=== PATIENT | female | born 1980 | race Caucasian/White ===

== ENCOUNTER 2018-10-02 15:24 | Inpatient (IN) ==
--- NOTE | 2018-10-02 18:40 | History & Physical Report ---
*Admission Date: 10/02/18 *Chief complaint: chest pain *History of present illness: Ms. Messina is a pleasant 38-year-old female, G1, P1, 3 weeks (C- section delivery) who presented to clinic today due to acute onset of right- sided posterior thoracic pain last night at approximately 10 PM. It is worst when taking a deep breath. Pain is constant and burning with sharp episodes on a deep breath. Denies cardial chest pain, syncope, swelling in her legs, nausea, vomiting, diarrhea. No fevers. Does report additionally the pain is worse when laying back. In the clinic she appeared uncomfortable with a gasp of pain each time she took a deep breath. Was sent to radiology for CT PE with discovery of bilateral pulmonary emboli. Admitted to [facility] for heparin drip to initiate anticoagulation, echocardiogram to assess for heart strain given bilateral PEs and flattened intraventricular septum on CT. Further management pending results of lab work and imaging. [facility] History I have reviewed the patient's past medical history: Yes Medical History: Denies:: Depression, Diabetes Mellitus Type 1, Lung Disease *Have you ever received a pneumonia vaccine?: No *Have you received a flu vaccine this season?: No Other Surgeries: Yes: Appendectomy Amputation: No Fractures: No - *Social History Educational Level: Attended College Smoking Status: Former smoker Tobacco Type: cigarettes # Packs/Day (cigarettes): 1 Alcohol Intake: never *Occupational Status:: employed Housing: house Household Members: spouse, children *Travel in the last 8 weeks: None - Psychiatric History Expresses thoughts of harming self/others: None Suicide Plan Description: No Plan Family Hx:: Cancer Review of Systems - Review of Systems Review of systems:: pertinent systems reviewed and negative unless documented below Meds Allergies Allergy/AdvReac Type Severity Reaction Status Date / Time INGREDIENT: NO KNOWN - NO Allergy Unknown Uncoded 02/04/17 14:48 KNOWN DRUG ALLERGY Exam Vital signs and Labs for Last 24 Hours: Temp Pulse Resp BP Pulse Ox 99.0 F 105 H 22 111/65 95 10/02/18 17:24 10/02/18 17:24 10/02/18 17:24 10/02/18 17:24 10/02/18 17:24 I & O for Last 24 hours: Intake & Output 09/29/18 09/30/18 10/01/18 10/02/18 23:59 23:59 23:59 23:59 Weight 124.936 kg - Constitutional mild distress, obese - *Routine HEENT Exam Head: Present: normocephalic Eye: Present: EOMI, PERRL ENT: Present: mucous membranes moist - *Routine Neck Exam Present: supple. Absent: lymphadenopathy - *Routine Respiratory Exam Present: CTA bilaterally. Absent: wheezes, crackles Comments: Pain with deep inspiration, no friction rubs. - *Routine Cardiovascular Exam Present: RRR - *Routine Abdominal Exam Present: soft, normoactive bowel sounds. Absent: tenderness - *Routine Extremities Exam Absent: cyanosis, clubbing, edema - *Routine Skin Exam Present: warm. Absent: rash - *Routine Neurological Exam Present: alert, oriented X3 Assessment and Plan (1) Bilateral pulmonary embolism Current visit: Yes Status: Acute Category: Medical Code(s): I26.99 - Other pulmonary embolism without acute cor pulmonale 38-year-old 3-week , status post , breast-feeding mother with bilateral PEs. -Initiate heparin drip, lab work as ordered -Echocardiogram pending -Monitor overnight for hemodynamic stability. If tolerates well with no signs of heart strain, plan to transition to oral therapy at time of discharge. -Requires inpatient management
[2018-10-02 18:53] LABS: Basophils % 0.2 % (0.1-2.0); Eosinophils # 0.1 K/mm3 (0.0-0.4); Eosinophils % 1.2 % (0.1-12.0); Hematocrit 42.9 % (37.0-47.0); Hemoglobin 13.6 g/dL (12.2-16.2); Lymphocytes # 2.2 K/mm3 (0.7-4.5); Mean Corpuscular HGB Conc 31.7 g/dL (31.8-35.4); Mean Corpuscular Volume 90.4 fl (81-99); Mean Platelet Volume 7.3 fl (7.4-10.4); Monocytes # 0.6 K/mm3 (0.1-1.0); Monocytes % 4.9 % (1.7-9.3); Neutrophils # 8.2 K/mm3 (1.8-7.8); Neutrophils % 73.8 % (37.0-80.0); Platelet Count 334 K/mm3 (142-424); Red Blood Count 4.74 M/mm3 (4.20-5.40); Red Cell Distribution Width 13.6 % (11.5-17.5); White Blood Count 11.1 K/mm3 (4.8-10.8)
[2018-10-02 19:05] LABS: Anion Gap 13.1 mEq/L (5-15); Calcium 8.7 mg/dL (8.5-10.1)
[2018-10-02 19:24] LABS: INR 1.05 (0.9-1.1); Prothrombin Time 10.9 seconds (9.4-11.8)
[2018-10-03 06:50] LABS: Basophils % 0.3 % (0.1-2.0); Eosinophils # 0.1 K/mm3 (0.0-0.4); Eosinophils % 1.2 % (0.1-12.0); Hematocrit 38.4 % (37.0-47.0); Hemoglobin 12.4 g/dL (12.2-16.2); Lymphocytes # 2.5 K/mm3 (0.7-4.5); Lymphocytes % 29.8 % (10-50); Mean Corpuscular HGB Conc 32.2 g/dL (31.8-35.4); Mean Corpuscular Volume 89.4 fl (81-99); Mean Platelet Volume 7.1 fl (7.4-10.4); Monocytes # 0.6 K/mm3 (0.1-1.0); Monocytes % 7.5 % (1.7-9.3); Neutrophils # 5.2 K/mm3 (1.8-7.8); Neutrophils % 61.1 % (37.0-80.0); Platelet Count 322 K/mm3 (142-424); Red Blood Count 4.29 M/mm3 (4.20-5.40); Red Cell Distribution Width 13.6 % (11.5-17.5); White Blood Count 8.5 K/mm3 (4.8-10.8)
[2018-10-03 06:52] LABS: Anion Gap 11.8 mEq/L (5-15); Calcium 9.1 mg/dL (8.5-10.1)
--- NOTE | 2018-10-03 08:26 | Progress Note ---
Internal Medicine - PN: Subj *Date: 10/03/18 *Time: 08:25 Interval history: Overall patient feels somewhat better, continues to have some pain with deep breathing. However he has had no further shortness of air at rest, and she does have shortness of air when she gets up and goes to the restroom. Exam Vital signs and Labs for Last 24 Hours: Temp Pulse Resp BP Pulse Ox 98.4 F 80 17 129/63 97 10/03/18 07:49 10/03/18 07:49 10/03/18 07:49 10/03/18 07:49 10/03/18 07:49 Laboratory Results - last 24 hr 10/02/18 18:39: WBC 11.1 H, RBC 4.74, Hgb 13.6, Hct 42.9, MCV 90.4, MCH 28.7, MCHC 31.7 L, RDW 13.6, Plt Count 334, MPV 7.3 L, Neut % (Auto) 73.8, Lymph % (Auto) 20.0, [place] % (Auto) 4.9, Eos % (Auto) 1.2, Baso % (Auto) 0.2, Neut # (Aut o) 8.2 H, Lymph # (Auto) 2.2, [place] # (Auto) 0.6, Eos # (Auto) 0.1, Baso # (Auto) 0.0 10/02/18 18:39: PT 10.9, INR 1.05 10/02/18 18:39: Sodium 139, Potassium 4.1, Chloride 101, Carbon Dioxide 29, Anion Gap 13.1, BUN 13, Creatinine 0.72, Estimated Creat Clear 106, Estimated GFR 90, Est GFR ( Amer) 109, Glucose 90, Calcium 8.7 10/02/18 18:39: Troponin I < 0.02 10/02/18 18:39: APTT 29.0 10/03/18 00:20: APTT 38.1 H D 10/03/18 06:25: WBC 8.5, RBC 4.29, Hgb 12.4, Hct 38.4, MCV 89.4, MCH 28.8, MCHC 32.2, RDW 13.6, Plt Count 322, MPV 7.1 L, Neut % (Auto) 61.1, Lymph % (Auto) 29.8, [place] % (Auto) 7.5, Eos % (Auto) 1.2, Baso % (Auto) 0.3, Neut # (Auto) 5.2, Lymph # (Auto) 2.5, [place] # (Auto) 0.6, Eos # (Auto) 0.1, Baso # (Auto) 0.0 10/03/18 06:25: Sodium 140, Potassium 3.8, Chloride 104, Carbon Dioxide 28, A nion Gap 11.8, BUN 19 H D, Creatinine 0.70, Estimated Creat Clear 109, Estimated GFR 93, Est GFR ( Amer) 113, Glucose 103, Calcium 9.1 10/03/18 06:25: APTT 50.4 H* D I & O for Last 24 hours: Intake & Output 09/30/18 10/01/18 10/02/18 10/03/18 11:59 11:59 11:59 11:59 Intake Total 311 / 311 Balance 311 / 311 Weight 281 lb 7 oz Narrative: Able to take a deep breath without splinting as much as yesterday, continues to have some pain on inspiration. Heart rate regular. Abdomen soft nontender. Lung hanson are clear. Oropharynx clear, no JVD. Patient is alert, neurologically intact Assessment and Plan (1) Bilateral pulmonary embolism Current visit: Yes Status: Acute Category: Medical Code(s): I26.99 - Other pulmonary embolism without acute cor pulmonale - Assessment and plan all Dx Assessment and Plan for all problems:: Clinically improved with heparin administration. Continue close follow-up. Labs in the morning. Start Xarelto this morning at 15 mg twice daily. If clinically improved would consider discharge tomorrow.
--- NOTE | 2018-10-03 13:16 | Pharmacy Consult Notes ---
[facility] Pharmacy Heparin Dosing - Demographic Data Admission date:: 10/02/18 Date: 10/03/18 Time: 13:12 Allergies/Adverse Reactions: Allergies Allergy/AdvReac Type Severity Reaction Status Date / Time No Known Allergies Allergy Unverified 10/03/18 09:27 Height: 1.73 m Weight: 127.7 kg - Indication Medication therapy:: Heparin CVA?: No Bleeding problem?: No Kidney disease?: No ID?: No Desired PTT range:: 60-80 seconds Comments:: CURRENTLY - Labs Anticoagulation Lab Results:: 10/02/18 10/03/18 18:39 06:25 Hgb 13.6 12.4 Hct 42.9 38.4 Plt Count 334 322 - Monitoring Dose Monitor 1 Date: 10/02/18 Time: 18:30 PTT Result:: 29.0 Comment:: BOLUS OF 5,000 UNITS AND INFUSION INITIATED AT 1,400 UNITS/HR Dose Monitor 2 Date: 10/03/18 Time: 00:20 PTT Result:: 38.1 Infusion Rate:: INCREASE RATE TO 1,650 UNITS/HR. ANOTHER BOLUS OF 5,000 UNITS GIVEN. Dose Monitor 3 Date: 10/03/18 Time: 06:25 PTT Result:: 50.4 Infusion Rate:: RATE INCREASED TO 1,750 UNITS/HR Comment:: PATIENT STARTED ON XARELTO TO BE TAKEN WHILE ON HEPARIN DRIP. VERBALLY VERIFIED THIS WITH DR. DUNHAM. Dose Monitor 4 Date: 10/03/18 Time: 13:55 PTT Result:: 68.9 Infusion Rate:: 1,750 UNITS/HR Dose Monitor 5 Date: 10/03/18 Time: 19:55 PTT Result:: 54.8 Infusion Rate:: INCREASE RATE TO 1,800 UNITS/HR Dose Monitor 6 Date: 10/04/18 Time: 02:35 PTT Result:: 51.3 Infusion Rate:: INCREASE RATE TO 1,900 UNITS/HR Comment:: HEPARIN DRIP DISCONTINUED AND PATIENT WAS DISCHARGED ON XARELTO 15MG BID WITH MEALS. - Core Measures Is INR > or = 2 at discharge?: No Most Recent Labs:: Laboratory Results - last 24 hr 10/02/18 18:39: WBC 11.1 H, RBC 4.74, Hgb 13.6, Hct 42.9, MCV 90.4, MCH 28.7, MCHC 31.7 L, RDW 13.6, Plt Count 334, MPV 7.3 L, Neut % (Auto) 73.8, Lymph % (Auto) 20.0, [place] % (Auto) 4.9, Eos % (Auto) 1.2, Baso % (Auto) 0.2, Neut # (Auto) 8.2 H, Lymph # (Auto) 2.2, [place] # (Auto) 0.6, Eos # (Auto) 0.1, Baso # (Auto) 0.0 10/02/18 18:39: PT 10.9, INR 1.05 10/02/18 18:39: Sodium 139, Potassium 4.1, Chloride 101, Carbon Dioxide 29, Ani on Gap 13.1, BUN 13, Creatinine 0.72, Estimated Creat Clear 106, Estimated GFR 90, Est GFR ( Amer) 109, Glucose 90, Calcium 8.7 10/02/18 18:39: Troponin I < 0.02 10/02/18 18:39: APTT 29.0 10/03/18 00:20: APTT 38.1 H D 10/03/18 06:25: WBC 8.5, RBC 4.29, Hgb 12.4, Hct 38.4, MCV 89.4, MCH 28.8, MCHC 32.2, RDW 13.6, Plt Count 322, MPV 7.1 L, Neut % (Auto) 61.1, Lymph % (Auto) 29.8, [place] % (Auto) 7.5, Eos % (Auto) 1.2, Baso % (Auto) 0.3, Neut # (Auto) 5.2, Lymph # (Auto) 2.5, [place] # (Auto) 0.6, Eos # (Auto) 0.1, Baso # (Auto) 0.0 10/03/18 06:25: Sodium 140, Potassium 3.8, Chloride 104, Carbon Dioxide 28, Anion Gap 11.8, BUN 19 H D, Creatinine 0.70, Estimated Creat Clear 109, Estimated GFR 93, Est GFR ( Amer) 113, Glucose 103, Calcium 9.1 10/03/18 06:25: APTT 50.4 H* D If INR was < than 2.0 why was therapy stopped?: PATIENT WENT HOME ON XARELTO Were Heparin and Warfarin started on the same day?: No If not, why?: SWITCHED TO XARELTO
--- NOTE | 2018-10-03 13:19 | Pharmacy Consult Notes ---
[facility] Pharmacy VTE Monitoring - Patient Demographics Admission date: 10/02/18 Report Date: 10/03/18 Time: 13:19 Allergies/Adverse Reactions: Patient Allergies No Known Allergies Allergy (Unverified 10/03/18 09:27) Height: 1.73 m Weight: 127.7 kg Patient Problems: Current Active Problems Bilateral pulmonary embolism (Acute) - VTE Risk Labs: VTE Related Lab Results Hgb 12.4 g/dL (12.2-16.2) 10/03/18 06:25 Hct 38.4 % (37.0-47.0) 10/03/18 06:25 Plt Count 322 K/mm3 (142-424) 10/03/18 06:25 PT 10.9 seconds (9.4-11.8) 10/02/18 18:39 INR 1.05 (0.9-1.1) 10/02/18 18:39 APTT 50.4 seconds (23.6-34.0) H* D 10/03/18 06:25 BUN 19 mg/dL (7-18) H D 10/03/18 06:25 Creatinine 0.70 mg/dL (0.55-1.02) 10/03/18 06:25 Estimated Creat Clear 109 mL/min (50-200) 10/03/18 06:25 VTE Score: 4 VTE Risk Level: Low Risk - Prophylaxis VTE Prophylaxis Ordered?: Yes Types of VTE Prophylaxis: Pharmacological Pharmacologic Type: Other (XARELTO) - VTE Diagnosis Confirmed Treatment or plan recommended: Continue Current Treatment
[2018-10-04 02:44] LABS: Basophils % 0.3 % (0.1-2.0); Eosinophils # 0.2 K/mm3 (0.0-0.4); Eosinophils % 2.7 % (0.1-12.0); Hematocrit 38.2 % (37.0-47.0); Hemoglobin 12.1 g/dL (12.2-16.2); Lymphocytes # 3.4 K/mm3 (0.7-4.5); Lymphocytes % 40.6 % (10-50); Mean Corpuscular HGB Conc 31.7 g/dL (31.8-35.4); Mean Corpuscular Volume 90.6 fl (81-99); Mean Platelet Volume 7.5 fl (7.4-10.4); Monocytes # 0.5 K/mm3 (0.1-1.0); Monocytes % 5.4 % (1.7-9.3); Neutrophils # 4.2 K/mm3 (1.8-7.8); Neutrophils % 51.1 % (37.0-80.0); Platelet Count 319 K/mm3 (142-424); Red Blood Count 4.22 M/mm3 (4.20-5.40); Red Cell Distribution Width 13.5 % (11.5-17.5); White Blood Count 8.3 K/mm3 (4.8-10.8)
[2018-10-04 02:50] LABS: Anion Gap 11.1 mEq/L (5-15); Calcium 8.7 mg/dL (8.5-10.1)
--- NOTE | 2018-10-04 08:11 | Discharge Summary ---
General - General Admission date:: 10/02/18 Discharge date: 10/04/18 HPI HPI: Ms. Messina is a pleasant 38-year-old female, G1, P1, 3 weeks (C- section delivery) who presented to clinic today due to acute onset of right- sided posterior thoracic pain last night at approximately 10 PM. It is worst when taking a deep breath. Pain is constant and burning with sharp episodes on a deep breath. Denies cardial chest pain, syncope, swelling in her legs, nausea, vomiting, diarrhea. No fevers. Does report additionally the pain is worse when laying back. In the clinic she appeared uncomfortable with a gasp of pain each time she took a deep breath. Was sent to radiology for CT PE with discovery of bilateral pulmonary emboli. Admitted to [facility] for heparin drip to initiate anticoagulation, echocardiogram to assess for heart strain given bilateral PEs and flattened intraventricular septum on CT. Further management pending results of lab work and imaging. Hospital Course Hospital Course: Patient was admitted, diagnosis of PE was established by CT scanning. Echocardiogram was done, preliminary report and personal evaluation by me revealed good RV function and wall motion. Patient was placed on heparinization and did well with this and felt much better the next morning but continued to have some splinting pain and dyspnea. Xarelto was started and patient tolerated this well. She did report minimal spotting vaginally but this is no different than she has had over the past couple of weeks since her recent . She continued to improve. This morning she was much better, able to take a much deeper breath without splinting pain unable to do self-care activities without shortness of air and no increase in bleeding. CBC and electrolytes were unremarkable this morning. Plan will be to discharge patient home, Xarelto will be prescribed. Close follow-up in our office as scheduled. 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 Instructed to return to the emergency department if shortness of air worsens. Incentive spirometry was provided. She was instructed that she will be unable to breast-feed given the Xarelto toxicity issues. Objective Vital signs: Temp Pulse Resp BP Pulse Ox 98.4 F 95 H 16 137/72 94 L 10/04/18 07:58 10/04/18 07:58 10/04/18 07:58 10/04/18 07:58 10/04/18 07:58 Narrative: Alert, oriented. Pleasant. No distress. Lungs have good air movement. Splinting pain with deep inspiration but this is improved over her admission exam. Abdomen tender postoperatively but soft. Heart rate regular. Oropharynx clear, no JVD. No skin rash, good distal perfusion. Neurologically intact. Results Labs on day of discharge: Labs from last 24 hours 10/04/18 10/04/18 10/04/18 02:35 02:35 02:35 WBC 8.3 RBC 4.22 Hgb 12.1 L Hct 38.2 MCV 90.6 MCH 28.7 MCHC 31.7 L RDW 13.5 Plt Count 319 MPV 7.5 Neut % (Auto) 51.1 Lymph % (Auto) 40.6 [place] % (Auto) 5.4 Eos % (Auto) 2.7 Baso % (Auto) 0.3 Neut # (Auto) 4.2 Lymph # (Auto) 3.4 [place] # (Auto) 0.5 Eos # (Auto) 0.2 Baso # (Auto) 0.0 APTT 51.3 H* Sodium 141 Potassium 4.1 Chloride 104 Carbon Dioxide 30 Anion Gap 11.1 BUN 15 Creatinine 0.74 Estimated Creat Clear 103 Estimated GFR 87 Est GFR ( Amer) 106 Glucose 100 Calcium 8.7 10/03/18 10/03/18 19:55 14:05 WBC RBC Hgb Hct MCV MCH MCHC RDW Plt Count MPV Neut % (Auto) Lymph % (Auto) [place] % (Auto) Eos % (Auto) Baso % (Auto) Neut # (Auto) Lymph # (Auto) [place] # (Auto) Eos # (Auto) Baso # (Auto) APTT 54.8 H* D 68.9 H* D Sodium Potassium Chloride Carbon Dioxide Anion Gap BUN Creatinine Estimated Creat Clear Estimated GFR Est GFR ( Amer) Glucose Calcium DS: Diagnosis - Discharge Diagnosis (1) Bilateral pulmonary embolism Status: Acute Discharge Plan - Patient Discharge Instructions ACTIVITY: Ambulate as tolerated DIET: continue same diet Patient Instructions: Heart-Healthy Diet, DI for Pulmonary Embolism - Follow up Plan Follow up with: Mera Zhang APRN [Nurse Practitioner] - 10/08/18 11:00 am Disposition: Home, Self-Assisted Medications: Home Medications Medication Instructions Recorded Confirmed Type Ibuprofen [Ibuprofen 800mg 800 mg PO Q8HP PRN 10/03/18 10/03/18 History Tablet] Rivaroxaban [Xarelto 15mg tablet] 15 mg PO BIDWM 21 Days #42 tab 10/04/18 Rx Prescriptions/Medication Reconciliation: New Rivaroxaban [Xarelto 15mg tablet] 15 mg PO BIDWM 21 Days #42 tab Discontinued Ibuprofen [Ibuprofen 800mg Tablet] 800 mg PO Q8HP PRN PRN Reason: PAIN - Problem Reconciliation Problems Reviewed?: Yes
--- NOTE | 2018-10-06 06:26 | Cardiology Report ---
APPROVED REPORT EXAM: Comprehensive 2D, Doppler, and color-flow Echocardiogram Butter Printer: RT Jessa(R) Ht: 5 ft 8 in Wt: 279lbs BSA: 2.35 BP: 130/90 mmHg Indications: Shortness of Breath Left Ventricle Left atrium is mildly enlarged, left ventricle is normal size, left ventricular wall thickness is upper limit of the normal, visually estimated ejection fraction 55% with no regional wall motion abnormality. Grade 1 diastolic dysfunction seen without tissue Doppler evidence of raise left atrial pressure. Right Ventricle Right atrium and right ventricular normal size and contractility. Aortic Valve Aortic valve is thickened and calcified leaflet continue to display good mobility., There is no aortic stenosis aortic insufficiency. Mitral Valve Mitral valve leaflets are minimally thickened, there is no mitral stenosis, there is mild mitral regurgitation. Tricuspid Valve Tricuspid valve is grossly normal, there is mild tricuspid regurgitation, tricuspid regurgitation jet velocity is inadequate for calculation of the right ventricular systolic pressure. Pulmonic Valve Pulmonic valve is poorly visualized. Great Vessels Aortic root is normal size. Pericardium No significant pericardial effusion noted. Conclusion 1. Mildly in the left atrium, normal left ventricular size, visually estimated ejection fraction 55% with no regional wall motion abnormality, grade 1 diastolic dysfunction seen without tissue Doppler evidence of raise left atrial pressure. 2. Mild mitral and tricuspid regurgitation. 3. No significant pericardial effusion noted. Electronically signed by : Shaun Johnson, 10/06/2018 06:25:58
[2018-10-07 00:25] LABS: Anti-Thrombin III Antigen 99 % (72-124); Protein S Antigen, Total 81 % (60-150)
[2018-10-09 09:46] LABS: Protein C Antigen 76 % (60-150)
== END 2018-10-04 08:40 | disposition home or self-care (01) | DRG 776 ==
LOC: RAD 15:24 → 2ND 17:11
PROVIDERS: ADMIT Internal Medicine Adolescent Medicine; ATTEND Internal Medicine Adolescent Medicine

== ENCOUNTER → 2019-04-27 08:43 | Outpatient (CLI) | payer BC, SELFPAY ==
[2019-04-30 15:44] LABS: Protein S Functional 64 % (63-140); Protein S, Free 70 % (57-157)
[2019-05-14 18:17] LABS: Factor II, DNA Analysis NEGATIVE
== END ==
PROVIDERS: PCP Internal Medicine Adolescent Medicine; Visit Provider Internal Medicine Medical Oncology
DX: I26.99 Other pulmonary embolism without acute cor pulmonale (principal)
CPT/HCPCS: 36415; 81240; 85306

== ENCOUNTER → 2022-08-23 07:46 | Outpatient (CLI) | payer BC, SELFPAY ==
--- NOTE | 2022-08-23 07:49 | MM_ITS ---
PROCEDURE INFORMATION: Exam: MG Bilateral Screening 3D Mammography Exam date and time: 08/23/2022 7:52 AM Age: 42 years old Clinical indication: Screening mammogram TECHNIQUE: Imaging protocol: Bilateral Screening tomosynthesis and 2D mammography including computer-aided detection (CAD) when performed. COMPARISON: No relevant prior studies available. FINDINGS: MAMMOGRAPHY: Breast composition: The breasts are almost entirely fatty. Mass: None. Architectural distortion: No new or suspicious architectural distortion. Calcifications: No new or suspicious calcifications are present Asymmetric density: No new or suspicious asymmetric density is present Skin thickening: None. Axillary adenopathy: None. IMPRESSION: No mammographic evidence of malignancy. Recommend annual screening mammography unless otherwise clinically indicated. ASSESSMENT: BI-RADS category 1: Negative
== END ==
PROVIDERS: PCP Internal Medicine Adolescent Medicine; Visit Provider Nurse Practitioner Family
DX: Z12.31 Encounter for screening mammogram for malignant neoplasm of breast (principal)
CPT/HCPCS: 77063; 77067

== ENCOUNTER → 2022-08-28 11:02 | Outpatient (CLI) | payer BC, SELFPAY ==
[2022-08-28 11:33] LABS: Basophils # 0.1 K/mm3 (0-0.2); Basophils % 0.7 % (0.1-2.0); Eosinophils # 0.2 K/mm3 (0.0-0.4); Eosinophils % 1.6 % (0.1-12.0); Hematocrit 50.5 % (37.0-47.0); Hemoglobin 16.3 g/dL (12.2-16.2); Lymphocytes # 3.3 K/mm3 (0.7-4.5); Lymphocytes % 35.1 % (10-50); Mean Corpuscular HGB Conc 32.4 g/dL (31.8-35.4); Mean Corpuscular Hemoglobin 29.9 pg (27.0-31.2); Mean Corpuscular Volume 92.5 fl (81-99); Mean Platelet Volume 7.5 fl (7.4-10.4); Monocytes # 0.5 K/mm3 (0.1-1.0); Monocytes % 5.6 % (1.7-9.3); Neutrophils # 5.3 K/mm3 (1.8-7.8); Neutrophils % 57.1 % (37.0-80.0); Platelet Count 326 K/mm3 (142-424); Red Blood Count 5.46 M/mm3 (4.20-5.40); Red Cell Distribution Width 13.3 % (11.5-17.5); White Blood Count 9.3 K/mm3 (4.8-10.8)
[2022-08-28 12:01] LABS: Anion Gap 9.8 mEq/L (5-15); Blood Urea Nitrogen 12 mg/dl (7-17); Calcium 9.3 mg/dl (8.4-10.2); Carbon Dioxide 27 mmol/L (22.0-30.0); Chloride 107 mmol/L (98-107); Estimated Glomerular Filt Rate 109 ml/min (>60); GFR (African American) 132 ML/MIN (>60); Glucose 91 mg/dl (74-100); Potassium 4.8 mmoL/L (3.5-5.1); Sodium 139 mmol/L (136-145)
== END ==
PROVIDERS: PCP Internal Medicine Adolescent Medicine; Visit Provider Surgery
DX: Z01.812 Encounter for preprocedural laboratory examination (principal); L02.91 Cutaneous abscess, unspecified
CPT/HCPCS: 36415; 80048; 85025

== ENCOUNTER 2022-09-02 06:06 | Day surgery (SDC) | payer BC, SELFPAY ==
[2022-08-30 09:33] VITALS: BMI 46.3
[2022-09-02 06:27] VITALS: BP 138/84; PULSE 84; RESP 18; TEMP 36.1; O2SAT 97
[2022-09-02 06:27] LABS: Urine Pregnancy, HCG Qual. Negative (Negative)
--- NOTE | 2022-09-02 06:56 | EXP.ANES.CKL ---
[facility] Disclaimer: The information contained in this section may have been updated after the patient was seen, as this information can be updated by other users. 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 Anesthesia Checklist Patient Identification Patient Identification: Arm Band and Family Structural Data Admitted From: Home Planned Operative Procedure/s: U and D Right breast Consent for Planned Operative Procedure(s) Verified: Yes Verified Documents: Surgical Consent and History and Physical NPO Status Verified Time NPO: 00:00 Additional verifications Patient : No Anesthesia Reactions: No (drowsiness) Hx Blood Transfusions: No Blood Transfusion Reaction: No Cephalosporin Allergy: No Previous Colonoscopy: Yes Airway Assessment C-Spine Mobility Assessed: Yes TMJ Mobility Assessed: Yes Dentition: Good Dentition Neurological Assessment Level of Consciousness: Awake, Alert, Appropriate and Follows Commands Hx Seizures: No Numbness or tingling in extremities: No Anesthesia Plan Anesthesia Risk discussed: Yes ASA Class: III Anesthesia Type: MAC Preoperative Comments Pre-Operative Comments: Morbid obesity.
--- NOTE | 2022-09-02 07:46 | EXP.OP.NOTE ---
Date of procedure: 09/02/22 Pre-op Diagnosis:: Right breast abscess/abscessed cyst Post-op Diagnosis:: Same Procedure performed:: Excision of abscessed right breast cyst Surgeon:: Jordi Roach MD COMMUNITY RECREATION PROGRAMMER:: Oj Carney Anesthesia: MAC and local Estimated blood loss (mL): 10 Operative findings:: Firm/indurated cystic tissue with recent drainage Operative note:: After informed consent was obtained the patient was taken to the operating room and placed in the supine position. Monitored anesthesia care ensued and her right breast was prepped and draped in a sterile fashion. After infiltration local anesthetic an elliptical incision was made around the inflamed cystic/abscessed lesion. The deep subcutaneous tissue was dissected and the entire specimen was excised in toto and passed off for pathologic evaluation. Electrocautery was utilized to achieve hemostasis. The wound was packed with dry gauze. She was then transferred to recovery in stable condition. Condition: stable Disposition: PACU Specimens:: Right breast abscess cyst and underlying breast tissue Complications:: No immediate
[2022-09-02 07:49] VITALS: BP 105/63; PULSE 83; RESP 16; TEMP 36.1; O2SAT 93
--- NOTE | 2022-09-02 07:57 | PC.NURSE ---
patient arrived w/ oral airway and simple mask placed on 7l/o2
[2022-09-02 08:04] VITALS: BP 104/73; PULSE 79; RESP 18; TEMP 36.1; O2SAT 96
[2022-09-02 08:24] VITALS: BP 122/61; PULSE 74; RESP 18; TEMP 36.1; O2SAT 95
--- NOTE | 2022-09-02 08:51 | SUR.PHASEII ---
0804- oral airway removed 814-pt c/o lower lip feels smashed- explained it was due to the airway used. should continue to get better
== END 2022-09-02 08:24 | disposition home or self-care (01) ==
PROVIDERS: PCP Internal Medicine Adolescent Medicine; Visit Provider Surgery
PROC: (CPT 19120; principal; 2022-09-02 07:30)
DX: N61.1 Abscess of the breast and nipple (principal)
CPT/HCPCS: 19120; 81025; 96374

== ENCOUNTER 2023-10-24 14:17 | Outpatient (CLI) | payer MEDICARE, BC, SELFPAY ==
--- NOTE | 2023-10-24 14:26 | MM_ITS ---
PROCEDURE INFORMATION: Exam: MG Bilateral Screening 3D Mammography Exam date and time: 10/24/2023 2:10 PM Age: 43 years old Clinical indication: Screening. No family history of breast cancer. TECHNIQUE: Imaging protocol: Bilateral Screening tomosynthesis and 2D mammography including computer-aided detection (CAD) when performed. COMPARISON: MG MM DIG SCREENING MAMM BI W/CAD 08/23/2022 7:52 AM FINDINGS: MAMMOGRAPHY: Breast composition: The breasts are almost entirely fatty. Mass: None. Architectural distortion: None. Calcifications: No suspicious calcifications. Asymmetric density: None. Skin thickening: None. Axillary adenopathy: None. IMPRESSION: No mammographic evidence of malignancy. Annual screening is recommended unless otherwise clinically indicated. ASSESSMENT: BI-RADS Category 1: Negative.
== END 2023-10-24 23:59 | disposition home or self-care (01) ==
LOC: RAD 14:18
PROVIDERS: PCP Nurse Practitioner Family; Visit Provider Nurse Practitioner Family
DX: Z12.31 Encounter for screening mammogram for malignant neoplasm of breast (principal)
CPT/HCPCS: 77063; 77067

== ENCOUNTER 2024-09-30 08:41 | Outpatient (CLI) | payer BC, SELFPAY ==
--- NOTE | 2024-09-30 08:49 | US_ITS ---
FINAL REPORT TECHNIQUE: Sonographic images of the right upper quadrant were obtained. CLINICAL HISTORY: RUQ PAIN COMPARISON: None FINDINGS: PANCREAS: Unremarkable. LIVER: Fatty infiltrated.. No focal hepatic lesion. No intrahepatic biliary ductal dilatation. GALLBLADDER: Gallstones in the gallbladder. Borderline thickened wall. COMMON DUCT: Dilated at 7 mm. RIGHT KIDNEY: The right kidney measures 13.3 cm. There is no hydronephrosis, mass, or stone. FREE FLUID: None. IMPRESSION: Fatty liver. Gallstones with borderline gallbladder wall thickening. Cholecystitis not excluded. Dilated common duct. Consider MRCP. Reviewed, Interpreted and Dictated by Oksana Odell MD Transcribed by Breanna Lui Authenticated and [facility]
--- OUTSIDE RECORDS SUMMARY | 2024-09-30 08:50 | XMS_ITS | Encounter Summary ---
Author Organization [employer] ([place], [place], [place], [place]) Address [address] [place] [address] Care Team Providers Care Probation Counselor Name Role Phone Unavailable Primary Care Provider Unavailabl e Encounter Details Date Type Department Care Team (Late st Contact Info) Description 09/11/2018 Transcribed Document [facility] – [place] Family Medicine [address] [place] [address] ProviderHanna MD [address] [place], [place] [id number] Social History Tobacco Use Types Packs/Day Years Used Date Smoking Tobacco: Never Assessed Comments Unknown Sex and Gender Information Value Date Recorded Sex Assigned at Not on file Legal Sex Female 6:37 PM CDT Gender Identity Not on file Sexual Orientation Not on file documented as of this encounter Miscellaneous Notes * Cerner Conversion Note - Hanna Cartagena MD - 09/11/2018 5:25 AM CDT Admission Data, OB Entered On: 09/11/2018 5:26 EDT Performed On: 09/11/2018 5:25 EDT by PARMINDER LANDA RN Advance Directive Patient has Advance Directive *Q : No, patient refuses Advance Directive information PARMINDER LANDA RN - 09/11/2018 5:25 EDT Height and Weight Height Source : Measured Height Entry Format : [place] Height, Feet : 5 ft(Converted to: 152 cm, 60 Inch) Clinical Height : 172.72 cm Height, Inches : 8 Inch(Converted to: 0 ft 8 Inch, 20.32 cm) Weight Source : Standing scale Weight Entry Format : [place] Weight, Pounds : 317 lb Clinical Dosing Weight : 144.09 kg Body Surface Area (BSA) : 2.49 m2 Body Mass Index : 48.3 kg/m2 (>HHI) [place] Body Weight (IBW) : 63.45 kg PARMINDER LANDA RN - 09/11/2018 5:25 EDT Health Histories Smoking Status : Former smoker, quit more than 30 days ago Smokeless Tobacco Status : Never PARMINDER LANDA RN - 09/11/2018 5:25 EDT Social History (As Of: 09/11/2018 05:26:55 EDT) Tobacco: Smoking Status Former smoker. Last Used: October 2013. (Last Updated: 12/20/2013 15:53:23 EST by ELKIN POMPA) 10 or more cigarettes (1/2 pack or more)/day in last 30 days Smoking Status. Years of Use: 15. (Last Updated: 11/26/2017 08:50:39 EDT by MICHA BURCIAGA, DARIN) Alcohol: Alcohol Use History Yes. Use in Last 12 Months: Yes. Alcohol Use Frequency Rarely. (Last Updated: 11/26/2017 08:50:53 EDT by MICHA BURCIAGA, DARIN) Gestational Age Gestational Age Person Gestational Age At : 259days Method : Comment : Tetanus Immunization Status Previous Tetanus Immunizations : No qualifying data available. Tetanus Immunization : Less than 5 years PARMINDER LANDA RN - 09/11/2018 5:25 EDT Influenza Vaccine Asmt, Adult Previous Vaccines from Immunization Schedule : No qualifying data available. Influenza Immunization, Current Season : Outside of influenza season PARMINDER LANDA RN - 09/11/2018 5:25 EDT Pneumococcal Vaccine Previous Vaccines from Immunization Schedule : No qualifying data available. Pneumonia Immunization Received : No Pneumococcal Risk Assessment < Age 65 : None PARMINDER LANDA RN - 09/11/2018 5:25 EDT Order Details Transport Mode Order Detail : Ambulatory Isolation Precautions Order Detail : Standard Precautions Order Detail : 1 IV Order Detail : 1 Oxygen Order Detail : 0 Nurse Collect Order Detail : 1 Lift/Transfer : Independent Central Line Order Detail : No Room Service : Appropriate Arterial Line : No PARMINDER LANDA RN - 09/11/2018 5:25 EDT Infectious Disease History Infectious Disease History : None Isolation Needed : Standard Fever/Chills Last 48 Hours : No Travel To Regions with Travel Advisories : No Travel Outside [place] Within Last 30 Days : No Contact With Traveler to Advisory Region : No Tuberculosis Symptoms : None PARMINDER LANDA RN - 09/11/2018 5:25 EDT documented in this encounter Plan of Treatment Not on file documented as of this encounter Visit Diagnoses Not on filedocumented in this encounter
--- OUTSIDE RECORDS SUMMARY | 2024-09-30 08:50 | XMS_ITS | Encounter Summary ---
Author Organization [employer] ([place], [place], [place], [place]) Address [address] [place] [address] Care Team Providers Care Pole Peeling Machine Operator Name Role Phone Unavailable Primary Care Provider Unavailabl e Encounter Details Date Type Department Care Team (Late st Contact Info) Description 09/12/2018 Transcribed Document [facility]DRAULIC [facility]ACK [facility]CHANIC - [place] [address] [facility] [address] [place] [address] Vidhya Dasilva MD [address], [address] [place] [address] Social History Tobacco Use Types Packs/Day Years Used Date Smoking Tobacco: Never Assessed Comments Unknown Sex and Gender Information Value Date Recorded Sex Assigned at Not on file Legal Sex Female 6:37 PM CDT Gender Identity Not on file Sexual Orientation Not on file documented as of this encounter Miscellaneous Notes * Cerner Conversion Note - Vidhya Dasilva MD - 09/12/2018 1:07 PM EDT Patient: FLORESITA LEONARDO Age: 38 Years Sex: Female : 1980 Subjective pain well controlled no complaints reg diet + flatus ambulating pumping Objective General: nad Breast: Cardiovascular: Lungs: Abdomen: ffm/ soft Ext: no ttp Incision/Episiotomy/Lac: bandage cdi Assessment/Plan 37 weeks gestation of Z3A.37 Abnormal glucose tolerance test (GTT) during , antepartum O99.810 AMA (advanced maternal age) multigravida 35+ O09.529 delivery delivered O82 doing well routine postop baby in NICU Encounter for supervision of normal first , unspecified trimester Z34.00, Encounter for supervision of normal first , unspecified trimester Z34.00 macrosomia affecting management of mother, antepartum O36.60X0 Gestational hypertension O13.9 Hypertension affecting in third trimester O16.3 Polyhydramnios O40.9XX0 1. Encourage ambulation/incentive spirometry every 15 minutes 2. DVT Prophylaxis 3. Tobacco abuse assessment: Smoker Yes(_)/No(_), If yes, plan: 4. control discussion and choice: 5. Feeding choice: 6. Vaccinations: 7. Return appointment: 8. depression follow-up plan: 9. Two hour OGTT scheduled for 6 week visit: Yes(_)/No(_) Data (_) NICU (_) Medications Inpatient acetaminophen-oxyCODONE 325 mg-5 mg oral tablet, 2 Tab, Oral, Q4H, PRN Adacel (Tdap), 0.5 mL, IntraMuscular, 1-Time, PRN aluminum hydroxide/magnesium hydroxide/simethicone 200 mg-200 mg-20 mg/5 mL oral suspension, 30 mL, Oral, Q4H, PRN Ambien, 5 mg= 1 Tab, Oral, At Bedtime, PRN Colace, 100 mg= 1 Cap, Oral, TID Dextrose 5% in Lactated Ringers intravenous solution 1,000 mL, 1000 mL, IntraVENous Dulcolax Laxative, 10 mg= 1 Supp, Rectal, BID, PRN Hemabate, 250 mcg= 1 mL, IntraMuscular, 1-Time, PRN hydrocortisone-pramoxine 1%-1% rectal cream, 1 Application, Rectal, Q4H, PRN ibuprofen, 600 mg= 1 Tab, Oral, Q6H ibuprofen, 400 mg= 1 Tab, Oral, Q6H, PRN lanolin topical ointment, 1 Application, Topical, See Comment, PRN measles/mumps/rubella virus vaccine, 0.5 mL, SubCutaneous, 1-Time, PRN Methergine, 0.2 mg= 1 mL, IntraMuscular, 1-Time, PRN Mylicon, 80 mg= 1 Tab, Chew, TID nalbuphine, 5 mg= 0.5 mL, IV Push, 1-Time, PRN naloxone, 0.2 mg= 0.5 mL, IV Push, See Comment, PRN Nonpharmacologic methods, 1 Each, Miscellaneous, See Comment, PRN Normal Saline Flush, 10 mL, IV Push, See Comment, PRN Normal Saline Flush, 10 mL, IV Push, Q8H Pepcid, 20 mg= 1 Tab, Oral, Q12H, PRN Percocet 5/325 oral tablet, 1 Tab, Oral, Q4H, PRN Percocet 5/325 oral tablet, 2 Tab, Oral, Q4H, PRN Percocet 5/325 oral tablet, 1 Tab, Oral, Q4H, PRN Multivitamins oral tablet, 1 Tab, Oral, Daily Stadol, 1 mg= 0.5 mL, IV Push, Q2H, PRN Zofran, 4 mg= 2 mL, IV Push, Q4H, PRN Zofran, 4 mg= 2 mL, IV Push, Q4H, PRN Home ferrous sulfate 324 mg (65 mg elemental iron) oral delayed release tablet, Oral, Daily Multivitamins oral tablet, Oral, Daily raNITIdine 150 mg oral tablet, 150 mg= 1 Tab, Oral, BID ZyrTEC 10 mg oral tablet, Oral, Daily Problem List/Past Medical History Ongoing Benign breast cyst in female Endometriosis Miscarriage Ovarian cyst Historical No qualifying data Lab Results SEP 12 05:21 \ L 10.7 / 8.8 196 / L 32.8 \ documented in this encounter Plan of Treatment Not on file documented as of this encounter Visit Diagnoses Not on filedocumented in this encounter
--- OUTSIDE RECORDS SUMMARY | 2024-09-30 08:50 | XMS_ITS | Encounter Summary ---
Author Organization [employer] ([place], [place], [place], [place]) Address [address] [place] [address] Care Team Providers Care Mirror Inspector Name Role Phone Unavailable Primary Care Provider Unavailabl e Encounter Details Date Type Department Care Team (Late st Contact Info) Description 09/12/2018 Transcribed Document [facility] [place] [address] [place] [address] ProviderHanna MD [address], [place] [id number] Social History Tobacco Use Types Packs/Day Years Used Date Smoking Tobacco: Never Assessed Comments Unknown Sex and Gender Information Value Date Recorded Sex Assigned at Not on file Legal Sex Female 6:37 PM CDT Gender Identity Not on file Sexual Orientation Not on file documented as of this encounter Miscellaneous Notes * Cerner Conversion Note - Hanna ProviderMD - 09/12/2018 5:00 AM CDT Chart Check - Review Order Profile Entered On: 09/12/2018 4:22 EDT Performed On: 09/12/2018 5:00 EDT by SAMINA ALFONSO RN Chart Check Powerplans Initiated/Discontinued as Appropriate : Yes All Active Orders Reviewed : Yes SAMINA ALFONSO RN - 09/12/2018 4:22 EDT documented in this encounter Plan of Treatment Not on file documented as of this encounter Visit Diagnoses Not on filedocumented in this encounter
--- OUTSIDE RECORDS SUMMARY | 2024-09-30 08:50 | XMS_ITS | Encounter Summary ---
Author Organization [employer] ([place], [place], [place], [place]) Address [address] [place] [address] Care Team Providers Care Medical Affairs Leader Name Role Phone Unavailable Primary Care Provider Unavailabl e Encounter Details Date Type Department Care Team (Late st Contact Info) Description 09/13/2018 Transcribed Document [facility] DEPARTMENT CLERK - [place] [address] [facility] [address] [place] [address] Vidhya Dasilva MD [address], [address] [place] [address] Social History Tobacco Use Types Packs/Day Years Used Date Smoking Tobacco: Never Assessed Comments Unknown Sex and Gender Information Value Date Recorded Sex Assigned at Not on file Legal Sex Female 6:37 PM CDT Gender Identity Not on file Sexual Orientation Not on file documented as of this encounter Miscellaneous Notes * Cerner Conversion Note - Vidhya Dasilva MD - 09/13/2018 11:42 AM EDT Patient: FLORESITA LEONARDO Age: 38 Years Sex: Female : 1980 Subjective pod #2 s/p cs for getational htn baby doing well in NICU- possibly moving to nursery today pain well controlled reg diet pumping ambulating and return of bowel function Objective Vitals & Measurements afvss General: nad Breast: Cardiovascular: Lungs: Abdomen: soft/ ffm Ext: no edema Incision/Episiotomy/Lac: bandage cdi/ wound vac in place, surrounding skin non- erythematous Assessment/Plan 37 weeks gestation of Z3A.37 Abnormal glucose tolerance test (GTT) during , antepartum O99.810 AMA (advanced maternal age) multigravida 35+ O09.529 delivery delivered O82 doing well cont routine po care Encounter for supervision of normal first , [...]
--- OUTSIDE RECORDS SUMMARY | 2024-09-30 08:50 | XMS_ITS | Encounter Summary ---
Author Organization [employer] ([place], [place], [place], [place]) Address [address] [place] [address] Care Team Providers Care Assembled Wood Products Repairer Name Role Phone Unavailable Primary Care Provider Unavailabl e Encounter Details Date Type Department Care Team (Late st Contact Info) Description 09/11/2018 Transcribed Document [facility] – [place] Family Medicine [address] [place] [address] ProviderHanna MD [address], [place] [address] Social History Tobacco Use Types Packs/Day Years Used Date Smoking Tobacco: Never Assessed Comments Unknown Sex and Gender Information Value Date Recorded Sex Assigned at Not on file Legal Sex Female 6:37 PM CDT Gender Identity Not on file Sexual Orientation Not on file documented as of this encounter Miscellaneous Notes * Cerner Conversion Note - Hanna ProviderMD - 09/11/2018 5:00 PM CDT Chart Check - Review Order Profile Entered On: 09/11/2018 18:24 EDT Performed On: 09/11/2018 17:00 EDT by MATILDE YOU, RN Chart Check Powerplans Initiated/Discontinued as Appropriate : Yes All Active Orders Reviewed : Yes MATILDE YOU, RN - 09/11/2018 18:24 EDT documented in this encounter Plan of Treatment Not on file documented as of this encounter Visit Diagnoses Not on filedocumented in this encounter
--- OUTSIDE RECORDS SUMMARY | 2024-09-30 08:50 | XMS_ITS | Referral Summary ---
Author Organization [employer] ([place], [place], [place], [place]) Address [address] [place] [address] Care Team Providers Care Veneer Sorter Name Role Phone Unavailable Primary Care Provider Unavailabl e Social History Tobacco Use Types Packs/Day Years Used Date Smoking Tobacco: Never Assessed Comments Unknown Sex and Gender Information Value Date Recorded Sex Assigned at Not on file Legal Sex Female 6:37 PM CDT Gender Identity Not on file Sexual Orientation Not on file Plan of Treatment Not on file
--- OUTSIDE RECORDS SUMMARY | 2024-09-30 08:50 | XMS_ITS | Encounter Summary ---
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 Name Role Phone Unavailable Primary Care Provider Unavailabl e Encounter Details Date Type Department Care Team (Late st Contact Info) Description 09/14/2018 Transcribed Document [facility] [place] [facility] [place] [address] ProviderHanna MD [address] [place] [address] [phone] Social History Tobacco Use Types Packs/Day Years Used Date Smoking Tobacco: Never Assessed Comments Unknown Sex and Gender Information Value Date Recorded Sex Assigned at Not on file Legal Sex Female 6:37 PM CDT Gender Identity Not on file Sexual Orientation Not on file documented as of this encounter Miscellaneous Notes * Cerner Conversion Note - Hanna Cartagena MD - 09/14/2018 12:30 PM CDT [place] [id number] FLORESITA LEONARDO :1980 Visit Time:09/11/2018 Your Visit Summary Your Care Team Admitting Physician - DAMIEN FLANAGAN DO Attending Physician - DAMIEN FLANAGAN, Primary Care Physician - YAMILE, NOT LISTED Referring Physician - DAMIEN FLANAGAN DO Your Diagnosis 37 weeks gestation of Abnormal glucose tolerance test (GTT) during , antepartum AMA (advanced maternal age) multigravida 35+ delivery delivered Encounter for supervision of normal first , unspecified trimester, Encounter for supervision of normal first , unspecified trimester macrosomia affecting management of mother, antepartum Gestational hypertension Hypertension affecting in third trimester Polyhydramnios What to do next Instructions From Your Care Team Diet after Discharge: Resume usual diet as tolerated Drink at least 8-10 glasses of water a day Do not drink any alcoholic beverages Add 500 extra calories daily if Eat a 1-2 carbohydrate snack before or during Activity After Discharge:As tolerated,Rest and relax today,No strenuous activities,Nothing in the vagina for 6 weeks Lifting Restrictions: no lifting over 10 lbs Weight Bearing Restrictions:Full weight bearing Minimize Stair Climbing Discuss Exercise with your physician Driving after Discharge:No driving for 2 weeks Showering Bathing:May Shower,No tub bathing, soaking or swimming,_ Breast Care: Wear supportive bras as much as possible Practice self-breast exam monthly , Notify Provider of: Redness, swelling, or drainage from incision Foul smelling vaginal discharge Temperature over 100.4 degrees Fahrenheit Signs of depression or anxiety that makes it hard for you to care for yourself or your baby Weight up more than 2 pounds a day or more than 5 pounds in a week Incision pulling apart Pass blood clots larger than a golf ball Sharp pain or redness in your legs Painful urination or feeling like you have to go to the bathroom all the time Have breast pain with fever and chills Excessive vomiting or diarrhea Vaginal bleeding greater than 1 pad per hour Pain is worsening and current pain medication is not adequate When to go to the Emergency Room or call 911: Shortness of breath or chest pain Unable to reach provider Wound/Incision Care After Discharge: Keep operative site/wound site clean and dry Remove remaining steri-strips after 7-10 days Follow-Up Appointments Follow Up with DAMIEN FLANAGAN When 09/24/2018 11:00 AM EDT Where: [facility] [address] [place] [phone] (1) Medications What How Much When Instructions Next Dose acetaminophen-oxyCODONE (acetaminophen-oxyCODONE 325 mg-5 mg oral tablet) 2 Tablet(s) Oral Every 4 Hours as needed for Pain (Severe 7-10) 1-2 tabs po q 4-6 hrs prn; not to exceed 12 tablets/ day 09/14/18 ibuprofen (ibuprofen 800 mg oral tablet) 1 Tablet(s) Oral Every 8 Hours Refills: 1 09/14/18 6pm cetirizine (ZyrTEC 10 mg oral tablet) Oral Every Day 09/15/18 am ferrous sulfate (ferrous sulfate 324 mg (65 mg elemental iron) oral delayed release tablet) Oral Every Day 09/14/18 pm multivitamin, ( Multivitamins oral tablet) Oral Every Day 09/15/18 am raNITIdine (raNITIdine 150 mg oral tablet) 1 Tablet(s) Oral Two Times A Day 09/14/18 9pm Take your medications faithfully. Do NOT skip medication. Do NOT stop taking medications without the direction of a physician. Carry a list of your medications with you at all times, and take this medication list with you to your first follow up visit. Report any side effects. Avoid herbal remedies unless discussed with your physician. As part of your treatment plan, your physician may have prescribed a limited course of a controlled substance. This medication may be given to help people with moderate or severe pain or for other medical conditions, but there are risks involved with treatment. Common side effects may include nausea, constipation, drowsiness, sweating, itching, dry mouth, and rash. More serious side effects may include cognitive and motor impairment, like problems with thinking, concentrating, alertness, and movement (e.g. slowed reflexes), and driving and operating heavy machinery can be dangerous. It is important for you to talk to your physician if you have these side effects or questions. These controlled substances can produce physical dependence and be habit-forming if taken for an extended period of time, which means that the body has gotten used to them and may experience withdrawal symptoms if they are abruptly stopped. Withdrawal symptoms can include runny nose, sweating, goose bumps, diarrhea, abdominal cramping, rapid heartbeat, difficulty sleeping, and nervousness. Please dispose of unused and medications per your retail pharmacy guidance. Allergies No Known Medication Allergies Immunizations This Visit No Immunizations Found Education Materials Breast Pumping Tips There may be times when you cannot feed your baby from your breast, such as when you are at work or on a trip. Breast pumping allows you to remove milk from your breast in order to store for later use. There are three ways to pump. You can use: ??? Your hand to massage and squeeze your breast (hand expression). ??? A handheld manual pump. ??? An electric pump. When you first start to pump, you may not get much milk, but after a few days your breasts should start to make more. Pumping can help stimulate your milk supply after your baby is born. It can also help maintain your milk supply when you are away from your baby. When should I pump? You can start pumping soon after your baby is born. Here are some tips on when to pump: ??? When with your baby: ? Pump after . ? Pump from the free breast while you breastfeed. ??? When away from your baby: ? Pump every 2???3 hours for about 15 minutes. ? Pump both breasts at the same time if you can. ??? If your baby gets formula feeding, pump around the time your baby gets that feeding. ??? If you drank alcohol, wait 2 hours before pumping. ??? If you are having a procedure with anesthesia, talk to your health care provider about when you should pump before and after. How do I prepare to pump? Take steps to relax. This makes it easier to stimulate your let-down reflex, which is what makes breast milk flow. To help: ??? Smell one of your infant's blankets or an item of clothing. ??? Look at a picture or video of your infant. ??? Sit in a quiet, private space. ??? Massage your breast and nipple. ??? Place a warm cloth on your breast. The cloth should be a little wet. ??? Play relaxing music. ??? Picture your milk flowing. What are some tips? General tips for pumping breast milk ??? Always wash your hands before pumping. ??? If you are not getting very much milk or pumping is uncomfortable, make adjustments to your pump or try using different type of pumps. ??? Drink enough fluid to keep your urine clear or pale yellow. ??? Wear clothing that opens in the front or allows easy access to your breasts. ??? Pump breast milk directly into clean bottles or other storage containers. ??? Do not use any products that contain nicotine or tobacco, such as cigarettes and e-cigarettes. These can lower your milk supply and harm your . If you need help quitting, ask your health care provider. Tips for storing breast milk ??? Store breast milk in a clean, BPA-free container, such as glass or plastic bottles or milk storage bags. ??? Store breast milk in 2???4 ounce batches to reduce waste. ??? Swirl the breast milk in the container to mix any cream that floats to the top. Do not shake it. ??? Label all stored milk with the date you pumped it. ??? The amount of time you can keep breast milk depends on where it is stored: ? Room temperature: 6???8 hours, if the milk is clean. It is best if used within 4 hours. ? Cooler with ice packs: 24 hours. ? Refrigerator: 5???8 days, if the milk is clean. It is best if used within 3 days. ? Freezer: 9???12 months, if the milk is clean and stored away from the freezer door. It is best if used within 6 months. ??? When using a refrigerator or freezer, put the milk in the back to keep it as cold as possible. ??? Thaw frozen milk using warm water. Do not use the microwave. Tips for choosing a breast pump The right pump for you will depend on your comfort and how often you will be away from your baby. When choosing a pump, consider the following: ??? Manual breast pumps do not need electricity to work. They are usually cheaper than electric pumps, but they can be harder to use. They may be a good choice if you are occasionally away from your baby. ??? Electric breast pumps are usually more expensive than manual pumps, but they can be easier for some women to use. They can also collect more milk than manual pumps. This makes them a good choice for women who work in an office or need to be away from their baby for longer periods of time. ??? The suction cup (flange) should be the right size. If it is the wrong size, it may cause pain and nipple damage. ??? Before buying a pump, find out whether your insurance covers the cost of a breast pump. Tips for maintaining a breast pump ??? Check your pump's manual for cleaning tips. ??? Clean the pump after each use. To do this: ? Wipe down the electrical unit. Use a dry, soft cloth or clean paper towel. Do not put the electrical unit in water or cleaning products. ? Wash the plastic pump parts with soap and warm water or in the salt miner, if the parts are salt miner safe. You do not need to clean the tubing unless it comes in contact with breast milk. Let the parts air dry. Avoid drying them with a cloth or towel. ? When the pump parts are clean and dry, put the pump back together. Then store the pump. ??? If there is water in the tubing when it comes time to pump, attach the tubing to the pump and turn on the pump. Run the pump until the tube is dry. ??? Avoid touching the inside of pump parts that come in contact with breast milk. Summary ??? Pumping can help stimulate your milk supply after your baby is born. It can also help maintain your milk supply when you are away from your baby. ??? When you are away from your infant for several hours, pump for about 15 minutes every 2???3 hours. Pump both breasts at the same time, if you can. ??? Your health care provider or underwriting consultant can help you decide which breast pump is right for you. The right pump for you depends on your comfort, work schedule, and how often you may be away from your baby. This information is not intended to replace advice given to you by your health care provider. Make sure you discuss any questions you have with your health care provider. Document Released: 07/24/2010 Document Revised: 03/10/2017 Document Reviewed: 03/10/2017 [employer] Patient Education ?? 2019 [employer] Delivery, Care After Refer to this sheet in the next few weeks. These instructions provide you with information about caring for yourself after your procedure. Your health care provider may also give you more specific instructions. Your treatment has been planned according to current medical practices, but problems sometimes occur. Call your health care provider if you have any problems or questions after your procedure. What can I expect after the procedure? After the procedure, it is common to have: ??? A small amount of blood or clear fluid coming from the incision. ??? Some redness, swelling, and pain in your incision area. ??? Some abdominal pain and soreness. ??? Vaginal bleeding (lochia). ??? Pelvic cramps. ??? Fatigue. Follow these instructions at home: Incision care ??? Follow instructions from your health care provider about how to take care of your incision. Make sure you: ? Wash your hands with soap and water before you change your bandage (dressing). If soap and water are not available, use hand director of financial reporting. ? If you have a dressing, change it as told by your health care provider. ? Leave stitches (sutures), skin tadeo, skin glue, or adhesive strips in place. These skin closures may need to stay in place for 2 weeks or longer. If adhesive strip edges start to loosen and curl up, you may trim the loose edges. Do not remove adhesive strips completely unless your health care provider tells you to do that. ??? Check your incision area every day for signs of infection. Check for: ? More redness, swelling, or pain. ? More fluid or blood. ? Warmth. ? Pus or a bad smell. ??? When you cough or sneeze, hug a pillow. This helps with pain and decreases the chance of your incision opening up (dehiscing). Do this until your incision heals. Medicines ??? Take [id number] and prescription medicines only as told by your health care provider. ??? If you were prescribed an antibiotic medicine, take it as told by your health care provider. Do not stop taking the antibiotic until it is finished. Driving ??? Do not drive or operate heavy machinery while taking prescription pain medicine. Lifestyle ??? Do not drink alcohol. This is especially important if you are or taking pain medicine. ??? Do not use tobacco products, including cigarettes, chewing tobacco, or e-cigarettes. If you need help quitting, ask your health care provider. Tobacco can delay wound healing. Eating and drinking ??? Drink at least 8 eight-ounce glasses of water every day unless told not to by your health care provider. If you breastfeed, you may need to drink more water than this. ??? Eat high-fiber foods every day. These foods may help prevent or relieve constipation. High-fiber foods include: ? Whole grain cereals and breads. ? Brown rice. ? Beans. ? Fresh fruits and vegetables. Activity ??? Return to your normal activities as told by your health care provider. Ask your health care provider what activities are safe for you. ??? Rest as much as possible. Try to rest or take a nap while your baby is sleeping. ??? Do not lift anything that is heavier than your baby or 10 lb (4.5 kg) as told by your health care provider. ??? Ask your health care provider when you can engage in sexual activity. This may depend on your: ? Risk of infection. ? Healing rate. ? Comfort and desire to engage in sexual activity. Bathing ??? Do not take baths, swim, or use a hot tub until your health care provider approves. Ask your health care provider if you can take showers. You may only be allowed to take sponge baths until your incision heals. General instructions ??? Do not use tampons or douches until your health care provider approves. ??? Wear: ? Loose, comfortable clothing. ? A supportive and well-fitting bra. ??? Watch for any blood clots that may pass from your vagina. These may look like clumps of dark red, brown, or black discharge. ??? Keep your perineum clean and dry as told by your health care provider. ??? Wipe from front to back when you use the toilet. ??? If possible, have someone help you care for your baby and help with household activities for a few days after you leave the hospital. ??? Keep all follow-up visits for you and your baby as told by your health care provider. This is important. Contact a health care provider if: ??? You have: ? Bad-smelling vaginal discharge. ? Difficulty urinating. ? Pain when urinating. ? A sudden increase or decrease in the frequency of your bowel movements. ? More redness, swelling, or pain around your incision. ? More fluid or blood coming from your incision. ? Pus or a bad smell coming from your incision. ? A fever. ? A rash. ? Little or no interest in activities you used to enjoy. ? Questions about caring for yourself or your baby. ? Nausea. ??? Your incision feels warm to the touch. ??? Your breasts turn red or become painful or hard. ??? You feel unusually sad or worried. ??? You vomit. ??? You pass large blood clots from your vagina. If you pass a blood clot, save it to show to your health care provider. Do not flush blood clots down the toilet without showing your health care provider. ??? You urinate more than usual. ??? You are dizzy or light-headed. ??? You have not breastfed and have not had a menstrual period for 12 weeks after delivery. ??? You stopped and have not had a menstrual period for 12 weeks after stopping . Get help right away if: ??? You have: ? Pain that does not go away or get better with medicine. ? Chest pain. ? Difficulty breathing. ? Blurred vision or spots in your vision. ? Thoughts about hurting yourself or your baby. ? New pain in your abdomen or in one of your legs. ? A severe headache. ??? You faint. ??? You bleed from your vagina so much that you fill two sanitary pads in one hour. This information is not intended to replace advice given to you by your health care provider. Make sure you discuss any questions you have with your health care provider. Document Released: 10/26/2002 Document Revised: 03/08/2017 Document Reviewed: 01/08/2016 [employer] Patient Education ?? 2018 [employer] ibuprofen (EYE bue PROE fen) Advil, Genpril, IBU, Midol IB, Motrin IB, Proprinal, Smart Sense Children's Ibuprofen What is the most important information I should know about ibuprofen? Ibuprofen can increase your risk of fatal heart attack or stroke, especially if you use it petroleum terminal plant operator or take high doses, or if you have heart disease. Do not use this medicine just before or after heart bypass surgery (coronary artery bypass graft, or CABG). Ibuprofen may also cause stomach or intestinal bleeding, which can be fatal. These conditions can occur without warning while you are using ibuprofen, especially in older adults. What is ibuprofen? Ibuprofen is a nonsteroidal anti-inflammatory drug (NSAID). Ibuprofen works by reducing hormones that cause inflammation and pain in the body. Ibuprofen is used to reduce fever and treat pain or inflammation caused by many conditions such as headache, toothache, back pain, arthritis, menstrual cramps, or minor injury. This medicine is used in adults and children who are at least 6 months old. Ibuprofen may also be used for purposes not listed in this medication guide. What should I discuss with my healthcare provider before taking ibuprofen? Ibuprofen can increase your risk of fatal heart attack or stroke, especially if you use it petroleum terminal plant operator or take high doses, or if you have heart disease. Even people without heart disease or risk factors could have a stroke or heart attack while taking this medicine. Do not use this medicine just before or after heart bypass surgery (coronary artery bypass graft, or CABG). Ibuprofen may also cause stomach or intestinal bleeding, which can be fatal. These conditions can occur without warning while you are using ibuprofen, especially in older adults. You should not use ibuprofen if you are allergic to it, or if you have ever had an asthma attack or severe allergic reaction after taking aspirin or an NSAID. Ask a doctor or pharmacist if it is safe for you to take this medicine if you have: ? heart disease, high blood pressure, high cholesterol, diabetes, or if you smoke; ?? a history of heart attack, stroke, or blood clot; ?? a history of stomach ulcers or bleeding; ?? asthma; ?? liver or kidney disease; ?? fluid retention; or ?? a connective tissue disease such as Marfan syndrome, Sjogren's syndrome, or lupus. Taking ibuprofen during the last 3 months of may harm the unborn baby. Do not use this medicine without a doctor's advice if you are . It is not known whether ibuprofen passes into breast milk or if it could affect a nursing baby. Ask a doctor before using this medicine if you are breast-feeding. Do not give ibuprofen to a child younger than 2 years old without the advice of a doctor. How should I take ibuprofen? Use exactly as directed on the label, or as prescribed by your doctor. Do not use in larger amounts or for longer than recommended. Use the lowest dose that is effective in treating your condition. Do not take more than your recommended dose. An ibuprofen overdose can damage your stomach or intestines. The maximum amount of ibuprofen for adults is 800 milligrams per dose or 3200 mg per day (4 maximum doses). Use only the smallest amount of ibuprofen needed to get relief from your pain, swelling, or fever. A child's dose of ibuprofen is based on the age and weight of the child. Carefully follow the dosing instructions provided with children's ibuprofen for the age and weight of your child. Ask a doctor or pharmacist if you have questions. Take ibuprofen with food or milk to lessen stomach upset. Shake the oral suspension (liquid) well just before you measure a dose. Measure liquid medicine with the dosing syringe provided, or with a special dose-measuring spoon or medicine cup. If you do not have a dose-measuring device, ask your pharmacist for one. The ibuprofen chewable tablet must be chewed before you swallow it. If you use this medicine long-term, you may need frequent medical tests. Store at room temperature away from moisture and heat. Do not allow the liquid medicine to freeze. Read all patient information, medication guides, and instruction sheets provided to you. Ask your doctor or pharmacist if you have any questions. What happens if I miss a dose? Since ibuprofen is used when needed, you may not be on a dosing schedule. If you are on a schedule, use the missed dose as soon as you remember. Skip the missed dose if it is almost time for your next scheduled dose. Do not use extra medicine to make up the missed dose. What happens if I overdose? Seek emergency medical attention or call the Poison Help line at . Overdose symptoms may include nausea, vomiting, stomach pain, drowsiness, black or bloody stools, coughing up blood, shallow breathing, fainting, or coma. What should I avoid while taking ibuprofen? Avoid drinking alcohol. It may increase your risk of stomach bleeding. Avoid taking aspirin while you are taking ibuprofen. Avoid taking ibuprofen if you are taking aspirin to prevent stroke or heart attack. Ibuprofen can make aspirin less effective in protecting your heart and blood vessels. If you must use both medications, take the ibuprofen at least 8 hours before or 30 minutes after you take the aspirin (non-enteric coated form). Ask a doctor or pharmacist before using any cold, allergy, or pain medicine. Many medicines available over the counter contain aspirin or other medicines similar to ibuprofen. Taking certain products together can cause you to get too much of this type of medication. Check the label to see if a medicine contains aspirin, ibuprofen, ketoprofen, or naproxen. What are the possible side effects of ibuprofen? Get emergency medical help if you have signs of an allergic reaction: sneezing, runny or stuffy nose; wheezing or trouble breathing; hives; swelling of your face, lips, tongue, or throat. Get emergency medical help if you have signs of a heart attack or stroke: chest pain spreading to your jaw or shoulder, sudden numbness or weakness on one side of the body, slurred speech, leg swelling, feeling short of breath. Stop using ibuprofen and call your doctor at once if you have: ? changes in your vision; ?? shortness of breath (even with mild exertion); ?? swelling or rapid weight gain; ?? the first sign of any skin rash, no matter how mild; ?? signs of stomach bleeding--bloody or tarry stools, coughing up blood or vomit that looks like coffee grounds; ?? liver problems--nausea, upper stomach pain, itching, tired feeling, flu-like symptoms, loss of appetite, dark urine, tate-colored stools, jaundice (yellowing of the skin or eyes); ?? kidney problems--little or no urinating, painful or difficult urination, swelling in your feet or ankles, feeling tired or short of breath; ?? low red blood cells (anemia)--pale skin, feeling light-headed or short of breath, rapid heart rate, trouble concentrating; or ?? severe skin reaction--fever, sore throat, swelling in your face or tongue, burning in your eyes, skin pain followed by a red or purple skin rash that spreads (especially in the face or upper body) and causes blistering and peeling. Common side effects may include: ? upset stomach, mild heartburn, nausea, vomiting; ?? bloating, gas, diarrhea, constipation; ?? dizziness, headache, nervousness; ?? mild itching or rash; or ?? ringing in your ears. This is not a complete list of side effects and others may occur. Call your doctor for medical advice about side effects. You may report side effects to FDA at 9-511-ZFL-1543. What other drugs will affect ibuprofen? Ask your doctor before using ibuprofen if you take an antidepressant such as citalopram, escitalopram, fluoxetine (Prozac), fluvoxamine, paroxetine, sertraline (Zoloft), trazodone, or vilazodone. Taking any of these medicines with an NSAID may cause you to bruise or bleed easily. Ask a doctor or pharmacist if it is safe for you to use ibuprofen if you are also using any of the following drugs: ? lithium; ?? methotrexate; ?? a blood thinner (warfarin, Coumadin, Jantoven); ?? heart or blood pressure medication, including a diuretic or 'water pill'; or ?? steroid medicine (such as prednisone). This list is not complete. Other drugs may interact with ibuprofen, including prescription and yizo-jqz-nimmzld medicines, vitamins, and herbal products. Not all possible interactions are listed in this medication guide. Where can I get more information? Your pharmacist can provide more information about ibuprofen. Remember, keep this and all other medicines out of the reach of children, never share your medicines with others, and use this medication only for the indication prescribed. Every effort has been made to ensure that the information provided by [employer]. ('[employer]') is accurate, up-to-date, and complete, but no guarantee is made to that effect. Drug information contained herein may be time sensitive. [employer] information has been compiled for use by healthcare practitioners and consumers in the [place] and therefore [employer] does not warrant that uses outside of the [place] are appropriate, unless specifically indicated otherwise. [employer]'s drug information does not endorse drugs, diagnose patients or recommend therapy. [employer] drug information is an informational resource designed to assist licensed healthcare practitioners in caring for their patients and/or to serve consumers viewing this service as a supplement to, and not a substitute for, the expertise, skill, knowledge and judgment of healthcare practitioners. The absence of a warning for a given drug or drug combination in no way should be construed to indicate that the drug or drug combination is safe, effective or appropriate for any given patient. [employer] does not assume any responsibility for any aspect of healthcare administered with the aid of information [employer] provides. The information contained herein is not intended to cover all possible uses, directions, precautions, warnings, drug interactions, allergic reactions, or adverse effects. If you have questions about the drugs you are taking, check with your doctor, nurse or pharmacist. Copyright 7501-7566 [employer]. Version: 18.01. Revision Date: 05/16/2016.acetaminophen and oxycodone (a SEET a MIN oh fen and OX i KOE done) Endocet 10/325, Endocet 2.5/325, Endocet 5/325, Endocet 7.5/325, Nalocet, Percocet 10/325, Percocet 2.5/325, Percocet 5/325, Percocet 7.5/325, Primalev, Primlev, Roxicet, Xartemis XR What is the most important information I should know about acetaminophen and oxycodone? MISUSE OF OPIOID MEDICINE CAN CAUSE ADDICTION, OVERDOSE, OR . Keep the medication in a place where others cannot get to it. An overdose of acetaminophen can damage your liver or cause . Call your doctor at once if you have pain in your upper stomach, loss of appetite, dark urine, or jaundice (yellowing of your skin or eyes). Taking opioid medicine during may cause life-threatening withdrawal symptoms in the . Fatal side effects can occur if you use opioid medicine with alcohol, or with other drugs that cause drowsiness or slow your breathing. Stop taking this medicine and call your doctor right away if you have skin redness or a rash that spreads and causes blistering and peeling. What is acetaminophen and oxycodone? Oxycodone is an opioid pain medication, sometimes called a narcotic. Acetaminophen is a less potent pain reliever that increases the effects of oxycodone. Acetaminophen and oxycodone is a combination medicine used to relieve moderate to severe pain. Acetaminophen and oxycodone may also be used for purposes not listed in this medication guide. What should I discuss with my healthcare provider before taking acetaminophen and oxycodone? You should not use this medicine if you are allergic to acetaminophen or oxycodone, or if you have: ? severe asthma or breathing problems; or ?? a blockage in your stomach or intestines. Tell your doctor if you have ever had: ? liver disease; ?? a drug or alcohol addiction; ?? kidney disease; ?? a head injury or seizures; ?? urination problems; or ?? problems with your thyroid, pancreas, or gallbladder. If you use opioid medicine while you are , your baby could become dependent on the drug. This can cause life-threatening withdrawal symptoms in the baby after it is born. Babies born dependent on opioids may need medical treatment for several weeks. Do not breast-feed. This medicine can pass into breast milk and cause drowsiness, breathing problems, or in a nursing baby. How should I take acetaminophen and oxycodone? Follow all directions on your prescription label. Never take this medicine in larger amounts, or for longer than prescribed. An overdose can damage your liver or cause . Tell your doctor if the medicine seems to stop working as well in relieving your pain. Never share this medicine with another person, especially someone with a history of drug abuse or addiction. MISUSE CAN CAUSE ADDICTION, OVERDOSE, OR . Keep the medicine in a place where others cannot get to it. Selling or giving away acetaminophen and oxycodone is against the law. Measure liquid medicine carefully. Use the dosing syringe provided, or use a medicine dose-measuring device (not a kitchen spoon). If you need surgery or medical tests, tell the doctor ahead of time that you are using this medicine. You should not stop using this medicine suddenly. Follow your doctor's instructions about tapering your dose. Store at room temperature away from moisture and heat. Keep track of your medicine. You should be aware if anyone is using it improperly or without a prescription. Do not keep leftover opioid medication. Just one dose can cause in someone using this medicine accidentally or improperly. Ask your pharmacist where to locate a drug take-back disposal program. If there is no take-back program, flush the unused medicine down the toilet. What happens if I miss a dose? Since this medicine is used for pain, you are not likely to miss a dose. Skip any missed dose if it is almost time for your next dose. Do not use two doses at one time. What happens if I overdose? Seek emergency medical attention or call the Poison Help line at . An overdose of acetaminophen and oxycodone can be fatal. The first signs of an acetaminophen overdose include loss of appetite, nausea, vomiting, stomach pain, sweating, and confusion or weakness. Later symptoms may include pain in your upper stomach, dark urine, and yellowing of your skin or the whites of your eyes. Overdose can also cause severe muscle weakness, pinpoint pupils, very slow breathing, extreme drowsiness, or coma. What should I avoid while taking acetaminophen and oxycodone? Avoid driving or operating machinery until you know how this medicine will affect you. Dizziness or drowsiness can cause falls, accidents, or severe injuries. Do not drink alcohol. Dangerous side effects or could occur. Ask a doctor or pharmacist before using any other medicine that may contain acetaminophen (sometimes abbreviated as APAP). Taking certain medications together can lead to a fatal overdose. What are the possible side effects of acetaminophen and oxycodone? Get emergency medical help if you have signs of an allergic reaction: hives; difficulty breathing; swelling of your face, lips, tongue, or throat. Opioid medicine can slow or stop your breathing, and may occur. A person caring for you should seek emergency medical attention if you have slow breathing with long pauses, blue colored lips, or if you are hard to wake up. In rare cases, acetaminophen may cause a severe skin reaction that can be fatal. This could occur even if you have taken acetaminophen in the past and had no reaction. Stop taking this medicine and call your doctor right away if you have skin redness or a rash that spreads and causes blistering and peeling. Call your doctor at once if you have: ? noisy breathing, sighing, shallow breathing; ?? a light-headed feeling, like you might pass out; ?? weakness, tiredness, fever, unusual bruising or bleeding; ?? confusion, unusual thoughts or behavior; ?? problems with urination; ?? liver problems--nausea, upper stomach pain, tiredness, loss of appetite, dark urine, tate-colored stools, jaundice (yellowing of the skin or eyes); or ?? low cortisol levels-- nausea, vomiting, loss of appetite, dizziness, worsening tiredness or weakness. Seek medical attention right away if you have symptoms of serotonin syndrome, such as: agitation, hallucinations, fever, sweating, shivering, fast heart rate, muscle stiffness, twitching, loss of coordination, nausea, vomiting, or diarrhea. Serious side effects may be more likely in older adults and those who are overweight, malnourished, or debilitated. Long-term use of opioid medication may affect fertility (ability to have children) in men or women. It is not known whether opioid effects on fertility are permanent. Common side effects include: ? dizziness, drowsiness, feeling tired; ?? feelings of extreme happiness or sadness; ?? nausea, vomiting, stomach pain; ?? constipation; or ?? headache. This is not a complete list of side effects and others may occur. Call your doctor for medical advice about side effects. You may report side effects to FDA at 5-316-CZS-5829. What other drugs will affect acetaminophen and oxycodone? You may have breathing problems or withdrawal symptoms if you start or stop taking certain other medicines. Tell your doctor if you also use an antibiotic, antifungal medication, heart or blood pressure medication, seizure medication, or medicine to treat HIV or hepatitis C. Opioid medication can interact with many other drugs and cause dangerous side effects or . Be sure your doctor knows if you also use: ? cold or allergy medicines, bronchodilator asthma/COPD medication, or a diuretic ('water pill'); ?? medicines for motion sickness, irritable bowel syndrome, or overactive bladder; ?? other narcotic medications--opioid pain medicine or prescription cough medicine; ?? a sedative like Valium--diazepam, alprazolam, lorazepam, Xanax, Klonopin, Versed, and others; ?? drugs that make you sleepy or slow your breathing--a sleeping pill, muscle relaxer, medicine to treat mood disorders or mental illness; ?? drugs that affect serotonin levels in your body--a stimulant, or medicine for depression, Parkinson's disease, migraine headaches, serious infections, or nausea and vomiting. This list is not complete. Other drugs may affect acetaminophen and oxycodone, including prescription and caws-ebq-sameqzc medicines, vitamins, and herbal products. Not all possible interactions are listed here. Where can I get more information? Your doctor or pharmacist can provide more information about acetaminophen and oxycodone. Remember, keep this and all other medicines out of the reach of children, never share your medicines with others, and use this medication only for the indication prescribed. Every effort has been made to ensure that the information provided by [employer]. [employer]') is accurate, up-to-date, and complete, but no guarantee is made to that effect. Drug information contained herein may be time sensitive. [employer] information has been compiled for use by healthcare practitioners and consumers in the [place] and therefore [employer] does not warrant that uses outside of the [place] are appropriate, unless specifically indicated otherwise. [employer] drug information does not endorse drugs, diagnose patients or recommend therapy. [employer] drug information is an informational resource designed to assist licensed healthcare practitioners in caring for their patients and/or to serve consumers viewing this service as a supplement to, and not a substitute for, the expertise, skill, knowledge and judgment of healthcare practitioners. The absence of a warning for a given drug or drug combination in no way should be construed to indicate that the drug or drug combination is safe, effective or appropriate for any given patient. [facility] does not assume any responsibility for any aspect of healthcare administered with the aid of information [facility] provides. The information contained herein is not intended to cover all possible uses, directions, precautions, warnings, drug interactions, allergic reactions, or adverse effects. If you have questions about the drugs you are taking, check with your doctor, nurse or pharmacist. Copyright 2971-0784 [facility]. Version: 18.02. Revision Date: 01/14/2018. Emergency Awareness and Preventative Care STROKE is an EMERGENCY Every Minute Counts Act FAST and Check for these signs: FACE Does the face look uneven? ARM Does one arm drift down? SPEECH Does their speech sound strange? TIME Call at any sign of stroke Stroke Risk Factors Atrial Fibrillation (irregular heartbeat) Diabetes Family history of stroke Heart Disease Heavy alcohol use High Blood Pressure High Cholesterol Physical inactivity and obesity Smoking Cigarette Smoking The facts are clear, cigarette smoking will shorten your life. Smoking can cause many illnesses along the way. As a healthcare provider, we recommend that you stop smoking. Assistance with quitting is available by contacting 7-211-UGIM-NOW. This is a free resource providing counseling, support, and referral. Or you may contact your personal physician. National Suicide Prevention Lifeline: The National Suicide Prevention Lifeline is a national network of local crisis centers that provides free and confidential emotional support to people in suicidal crisis or emotional distress 24 hours a day, 7 days a week. Don't Wait! Stop a Heart Attack Before it Starts What is a heart attack? A heart attack is damage or to a part of the heart from severely decreased or lack of blood flow to the heart. Over time, arteries can become narrow from the buildup of fat and cholesterol, which is called plaque. The plaque can rupture causing a blood clot to form. When the blood clot forms, the artery can become severely narrowed or completely blocked, causing a heart attack. Heart attack is the leading cause of in the [place]. 85% of muscle damage occurs within the first 2 hours. Delay in the recognition of heart attack symptoms increases the chances of . Know the early symptoms of a heart attack: Nausea Feeling of fullness in chest Jaw Pain Pain that travels down one or both arms Fatigue/being tired Anxiety Back Pain Chest pressure, squeezing, or discomfort Shortness of breath Sweating, or a cold sweat Feeling of impending doom There are unusual signs of a heart attack, too! Women, the elderly, and diabetics may present with atypical symptoms: Fainting/dizziness Weakness Confusion Risk Factors for a Heart Attack Some heart disease risk factors, such as age and family history, cannot be changed. Others, like smoking and lack of exercise, can be changed. Smoking High Cholesterol High Blood Pressure Family History Obesity Age Gender (Males are at higher risk) Lack of Exercise Diabetes Diet Stress Excessive Alcohol Intake If you or someone you know is experiencing the signs and symptoms of a heart attack, DON???T DELAY. Call immediately and seek help. If someone collapses, perform CPR! Do not attempt to drive if you are having symptoms of heart attack. Hands-Only CPR Why Hands-Only CPR? Hands-Only CPR has been shown to be as effective as conventional CPR for cardiac arrests that occur outside of a hospital. Survival depends on immediately receiving CPR from someone nearby. How do you perform Hands-Only CPR? There are two easy steps: Call if you see a teen or adult collapse Push hard and fast in the center of the chest at a beat of 100 beats per minute. Save a life! 4 WAYS TO GET AHEAD OF SEPSIS SEPSIS is a MEDICAL EMERGENCY. Time matters! Infections put you and your family at risk for a life-threatening condition called sepsis. Sepsis is the body's extreme response to an infection. It is life-threatening, and without timely treatment, sepsis can rapidly lead to tissue damage, organ failure, and . Sepsis happens when an infection you already have-in your skin, lungs, urinary tract or somewhere else-triggers a chain reaction throughout your body. 1 PREVENT INFECTIONS Take good care of chronic conditions. Talk to your doctor about getting the recommended vaccines. 2 PRACTICE GOOD HYGIENE Wash your hands frequently. Keep cuts or open sores clean and covered until they are healed. 3 KNOW THE SYMPTOMS Confusion or disorientation Shortness of breath High heart rate Fever, shivering, or feeling very cold Extreme pain or discomfort Clammy or sweaty skin 4 ACT FAST Get medical care IMMEDIATELY if you suspect sepsis or if you have an infection that is not getting better or is getting worse. To learn more about sepsis and how to prevent infections, visit www.cdc.gov/sepsis. Test Results Laboratory or Other Results This Visit (last charted value for your 09/11/2018 visit) Hematology 09/12/18 05:21:00 WBC: 8.8 K/uL -- Normal range between ( 3.9 and 10.0 ) RBC: 3.55 Million/uL -- Normal range between ( 3.93 and 5.22 ) Hct: 32.8 % -- Normal range between ( 34.1 and 44.9 ) Hgb: 10.7 Gram/dL -- Normal range between ( 11.2 and 15.7 ) Platelet Count: 196 K/uL -- Normal range between ( 163 and 369 ) MCH: 30.1 pg -- Normal range between ( 25.6 and 32.2 ) MCHC: 32.6 Gram/dL -- Normal range between ( 32.3 and 36.5 ) MCV: 92.4 fL -- Normal range between ( 79.0 and 94.8 ) Slide Review: No RDW: 13.6 % -- Normal range between ( 11.6 and 14.4 ) MPV: 9.4 fL -- Normal range between ( 9.4 and 12.4 ) 09/11/18 05:56:00 Eos %: 0.7 % -- Normal range between ( 1.0 and 7.0 ) [place] #: 0.99 K/uL -- Normal range between ( 0.24 and 0.82 ) Eos #: 0.07 K/uL -- Normal range between ( 0.04 and 0.54 ) [place] %: 9.3 % -- Normal range between ( 4.7 and 12.5 ) Baso %: 0.2 % -- Normal range between ( 0.0 and 1.0 ) Baso #: 0.02 K/uL -- Normal range between ( 0.01 and 0.08 ) Neut %: 64.8 % -- Normal range between ( 34.0 and 71.0 ) Neut #: 6.93 K/uL -- Normal range between ( 1.56 and 6.13 ) Lymph %: 24.7 % -- Normal range between ( 19.3 and 53.0 ) Lymph #: 2.64 K/uL -- Normal range between ( 1.18 and 3.74 ) IG#: 0 x10(3)/uL IG%: 0 % -- Normal range between ( 0 and 1 ) Blood Bank 09/11/18 12:48:39 RhIg Product Ready: Not Indicated # of Vials: 0 09/11/18 05:56:00 ABO/Rh: B NEG Antibody Screen (Tube): Negative ABSC General Chemistry 09/11/18 05:56:00 Creatinine Level: 0.59 mg/dL -- Normal range between ( 0.55 and 1.02 ) Sodium Level: 137 mmol/L -- Normal range between ( 136 and 146 ) Potassium Level: 4.0 mmol/L -- Normal range between ( 3.5 and 5.1 ) Chloride Level: 108 mmol/L -- Normal range between ( 102 and 112 ) Carbon Dioxide Level: 21 mmol/L -- Normal range between ( 21 and 32 ) Anion Gap: 12 -- Normal range between ( 9 and 20 ) Bilirubin Total: 0.3 mg/dL -- Normal range between ( 0.2 and 1.3 ) A/G Ratio: 0.7 -- Normal range between ( 1.1 and 2.5 ) ALT: 9 Units/Liter -- Normal range between ( 12 and 78 ) AST: 11 Units/Liter -- Normal range between ( 5 and 37 ) Globulin: 3.8 Gram/dL -- Normal range between ( 1.5 and 4.5 ) Alk Phos: 128 Units/Liter -- Normal range between ( 27 and 136 ) Bun/Creatinine: 8.5 -- Normal range between ( 8.0 and 20.0 ) Calcium Level: 8.9 mg/dL -- Normal range between ( 8.5 and 10.1 ) eGFR : >60 mL/min/1.73m2 eGFR NonAfrican: >60 mL/min/1.73m2 Glucose Level: 105 mg/dL -- Normal range between ( 74 and 106 ) Blood Urea Nitrogen: 5 mg/dL -- Normal range between ( 7 and 22 ) Lactate Dehydrogenase: 165 Units/Liter -- Normal range between ( 84 and 246 ) Uric Acid: 4.3 mg/dL -- Normal range between ( 2.6 and 6.0 ) Protein Total: 6.4 Gram/dL -- Normal range between ( 6.4 and 8.2 ) Albumin Level: 2.6 Gram/dL -- Normal range between ( 3.4 and 5.0 ) Toxicology 09/11/18 05:56:00 UDS Amp: Negative UDS Shonna: Negative UDS Benzo: Negative UDS Shamar: Negative UDS Meth: Negative UDS Opi: Negative UDS Oxy: Negative UDS PCP: Negative UDS TCA: Negative UDS THC: Negative Buprenorphine Screen, Urine: Negative Heroin Metab (6AM) by LC-MS/MS, Urine: Negative SpGravity, Urine: 1.015 Propoxyphene, Urine: Negative UDS pH: 8.0 UDS Creatinine, Toxicology: 151.4 mg/dL Patient Name:FLORESITA LEONARDO I have received and understand this information and was given the opportunity to ask questions. Patient/Pesticide Control Inspector Name: Patient/Pesticide Control Inspector Signature: Relationship to Patient: Clinician/Hospital Pesticide Control Inspector Signature: Date: documented in this encounter Plan of Treatment Not on file documented as of this encounter Visit Diagnoses Not on filedocumented in this encounter
--- OUTSIDE RECORDS SUMMARY | 2024-09-30 08:50 | XMS_ITS | Encounter Summary ---
Author Organization [employer] ([place], [place], [place], [place]) Address [address] [place] [address] Care Team Providers Care Telephonic Nurse Case Manager Name Role Phone Unavailable Primary Care Provider Unavailabl e Encounter Details Date Type Department Care Team (Late st Contact Info) Description 09/14/2018 Transcribed Document [facility] [place] Family Medicine [facility] [place] [address] ProviderHanna MD [address] [place] [address] [id number] Social History Tobacco Use Types Packs/Day Years Used Date Smoking Tobacco: Never Assessed Comments Unknown Sex and Gender Information Value Date Recorded Sex Assigned at Not on file Legal Sex Female 6:37 PM CDT Gender Identity Not on file Sexual Orientation Not on file documented as of this encounter Miscellaneous Notes * Cerner Conversion Note - Hanna Cartagena MD - 09/14/2018 11:31 AM CDT Patient Education Materials Follows:and Gynecology Breast Pumping Tips There may be times [...] away from your baby: ? Pump every 2?3 hours for about 15 minutes. ? Pump [...] To help: ??? Smell one of your 's blankets or an item of clothing. ??? Look at a picture or video of your . ??? Sit in a quiet, private space. [...] lower your milk supply and harm your infant. If you need help quitting, ask your health care provider. Tips for storing breast milk ??? Store breast milk in a clean, BPA-free container, such as glass or plastic bottles or milk storage bags. ??? Store breast milk in 2?4 ounce batches to reduce waste. ??? Swirl the breast milk in the container to mix any cream that floats to the top. Do not shake it. ??? Label all stored milk with the date you pumped it. ??? The amount of time you can keep breast milk depends on where it is stored: ? Room temperature: 6?8 hours, if the milk is clean. It is best if used within 4 hours. ? Cooler with ice packs: 24 hours. ? Refrigerator: 5?8 days, if the milk is clean. It is best if used within 3 days. ? Freezer: 9?12 months, if the milk is clean and [...] soap and warm water or in the work counselor, if the parts are work counselor safe. You do not need to clean [...] ??? When you are away from your for several hours, pump for about 15 minutes every 2?3 hours. Pump both breasts at the same time, if you can. ??? Your health care provider or regional sales consultant can help you decide which breast [...] 07/24/2010 Document Revised: 03/10/2017 Document Reviewed: 03/10/2017 [employer] Patient Education ? 2019 [employer] Delivery, Care After Refer to this [...] and water are not available, use hand soccer player. ? If you have a dressing, change [...] until your incision heals. Medicines ??? Take rnqx-nlq-mlaadys and prescription medicines only as told by [...] 10/26/2002 Document Revised: 03/08/2017 Document Reviewed: 01/08/2016 [employer] Interactive Patient Education ? 2018 [employer] Electronically signed by Dennis Mosley Conversion Front End Developer Javascript Html Css Coraner at 06/04/2022 11:09 AM CDT documented in this encounter Plan of Treatment Not on file documented as of this encounter Visit Diagnoses Not on filedocumented in this encounter
--- OUTSIDE RECORDS SUMMARY | 2024-09-30 08:50 | XMS_ITS | Encounter Summary ---
Author Organization [employer] ([place], [place], [place], [place]) Address [address] [place] [address] Care Team Providers Care Calcine Furnace Tender Name Role Phone Unavailable Primary Care Provider Unavailabl e Encounter Details Date Type Department Care Team (Late st Contact Info) Description 09/15/2018 Transcribed Document [facility] [place] Family [place] [facility] [place] [address] ProviderHanna MD [address] [place] [address] Social History Tobacco Use Types Packs/Day Years Used Date Smoking Tobacco: Never Assessed Comments Unknown Sex and Gender Information Value Date Recorded Sex Assigned at Not on file Legal Sex Female 6:37 PM CDT Gender Identity Not on file Sexual Orientation Not on file documented as of this encounter Miscellaneous Notes * Cerner Conversion Note - Hanna Cartagena MD - 09/15/2018 2:59 PM CDT DATE OF PROCEDURE: 09/11/2018 PREOPERATIVE DIAGNOSIS(ES): A 38-year-old, 2, para 1, intrauterine at 37 and 0/7th weeks gestation with advanced maternal age and multiple , chronic hypertension, polyhydramnios, suspected macrosomia, and abnormal 1-hour glucose tolerance test. POSTOPERATIVE DIAGNOSIS(ES): A 38-year-old, 2, para 1, intrauterine at 37 and 0/7th weeks gestation with advanced maternal age and multiple , chronic hypertension, polyhydramnios, suspected macrosomia, and abnormal 1-hour glucose tolerance test. PROCEDURE: Primary low transverse section via Pfannenstiel. SURGEON: Breanna Hanna DO ASSOCIATE CREATIVE DIRECTOR: Floridalma Castillo PA-C. ANESTHESIA: Spinal. COMPLICATIONS: None apparent. ESTIMATED BLOOD LOSS: 900. INTRAVENOUS FLUIDS: 1200 crystalloid. URINE OUTPUT: 100 mL clear at the completion of the procedure. INDICATIONS: A 38-year-old, 2, para 1, intrauterine at 37 and 0/7th weeks gestation with suspected macrosomia, advanced maternal age, chronic hypertension, polyhydramnios, abnormal 1-hour GTT. SPECIMENS: None. FINDINGS: 1. Female infant at 7:47, Apgars of 8 and 8, weighed 4436 g. 2. An intact placenta with a three-vessel cord that was disposed of. 3. Unremarkable pelvic anatomy. DESCRIPTION OF PROCEDURE: The patient was taken to the operating room suite where spinal anesthesia was initiated. She was prepped and draped in the dorsal supine position. After verifying adequate anesthesia, Pfannenstiel skin incision was made with a scalpel and carried down the underlying layer of the fascia, which was incised midline. Fascial incisions were extended superiorly and laterally. The superior edge of the fascia was grasped with Damon, elevated up, and the underlying rectus muscles were dissected off. Similarly, this was carried through on the inferior edge of the fascia as well. Rectus muscles were divided. Peritoneum was identified and entered. Peritoneal incisions were extended with good bladder visualization. The bladder blade was inserted. Vesicouterine peritoneum was grasped with pickup and incised with the Metzenbaum scissors. A bladder flap was then created digitally. The bladder blade was reinserted. The lower uterine segment was incised in a transverse fashion. Hysterotomy was extended superiorly and laterally. The was delivered atraumatically in the cephalic presentation. Upon delivery, cord was clamped twice and cut. Infant was bulb suctioned and handed to the waiting NICU team. Cord blood was obtained and sent to the lab for analysis. The placenta was delivered, noted to be intact with a three-vessel cord and was disposed of. The uterus was cleared of all clot and debris. Hysterotomy was reapproximated in the usual running locked fashion with 1-0 chromic. The uterus was returned to the pelvis, which was then copiously irrigated. Gutters were also cleared of all clot and debris. Surgifoam was added for additional hemostatic purpose. Peritoneum was reapproximated with 2-0 chromic. Fascia was reapproximated with 0-Vicryl. Subcu was reapproximated with 2-0 Vicryl. Skin was closed with tadeo and a RAKESH dressing was applied postop. Sponge, lap, and needle counts were correct x3. Please note, antibiotics were given on-call in the operating room suite. The was taken to the NICU for evaluation post delivery and the patient went to Recovery in stable condition. Breanna Hanna D.O. Dict: 09/15/2018 14:59:17 Trans: 09/15/2018 15:54:33 CC1: Breanna Hanna D.O. documented in this encounter Plan of Treatment Not on file documented as of this encounter Visit Diagnoses Not on filedocumented in this encounter
--- OUTSIDE RECORDS SUMMARY | 2024-09-30 08:50 | XMS_ITS | Encounter Summary ---
Author Organization [employer] ([place], [place], [place], [place]) Address [address] [place] [address] Care Team Providers Care Missile Inspector Name Role Phone Unavailable Primary Care Provider Unavailabl e Encounter Details Date Type Department Care Team (Late st Contact Info) Description 09/17/[address] [facility] [place] Family Medicine [place] [address] ProviderHanna MD [facility] [place], [place] [id number] Social History Tobacco Use Types Packs/Day Years Used Date Smoking Tobacco: Never Assessed Comments Unknown Sex and Gender Information Value Date Recorded Sex Assigned at Not on file Legal Sex Female 6:37 PM CDT Gender Identity Not on file Sexual Orientation Not on file documented as of this encounter Miscellaneous Notes * Cerner Conversion Note - Hanna ProviderMD - 09/17/2018 9:19 AM CDT HISTORY AND PHYSICAL UPDATE Update Required: The appropriate section below MUST be completed prior to authentication. UPDATE: The History and Physical performed by on has been reviewed, patient was examined, and no change has occurred since the History and Physical was completed. OR UPDATE: The History and Physical performed by on has been reviewed and patient examined. The only significant change(s) in the patient's history or condition since the History and Physical was completed are indicated below: Significant Changes: documented in this encounter Plan of Treatment Not on file documented as of this encounter Visit Diagnoses Not on filedocumented in this encounter
--- OUTSIDE RECORDS SUMMARY | 2024-09-30 08:50 | XMS_ITS | Encounter Summary ---
Author Organization [employer] ([place], [place], [place], [place]) Address [address] [place] [address] Care Team Providers Care Dental Scheduling Coordinator Name Role Phone Unavailable Primary Care Provider Unavailabl e Encounter Details Date Type Department Care Team (Late st Contact Info) Description 09/11/2018 Transcribed Document [facility] [place] Family Medicine [address] [place] [address] ProviderHanna MD [address] [place], [place] [phone] Social History Tobacco Use Types Packs/Day Years Used Date Smoking Tobacco: Never Assessed Comments Unknown Sex and Gender Information Value Date Recorded Sex Assigned at Not on file Legal Sex Female 6:37 PM CDT Gender Identity Not on file Sexual Orientation Not on file documented as of this encounter Miscellaneous Notes * Cerner Conversion Note - Hanna ProviderMD - 09/11/2018 1:46 PM CDT UM Authorization Entered On: 09/11/2018 13:47 EDT Performed On: 09/11/2018 13:46 EDT by AUGUSTO PALMER Rn-Utilization Review Primary Insurance Authorization Authorization and Policy Numbers : Insurance 1 Health Plan: [employer] Policy Number: [id number] Authorization Number: Insurance 2 Health Plan: [employer] Policy Number: [id number] Authorization Number: Insurance Primary Name : Lincoln CABRAL Authorization Status-Primary : No precert required Authorization Number-Primary : Auto 2/4 Number of Days Authorized-Primary : 4 Authorized Service Begin Date-Primary : 09/11/2018 EDT Authorized Service End Date-Primary : 09/14/2018 EDT Authorization Comments-Primary : Auto 2/4 Historical Authorization Comments-Primary : No Authorization Comments Found AUGUSTO PALMER Rn-Utilization Review - 09/11/2018 13:46 EDT Electronically signed by Melany [facility] Conversion Breading Machine Tender Cerner at 06/04/2022 10:49 AM CDT documented in this encounter Plan of Treatment Not on file documented as of this encounter Visit Diagnoses Not on filedocumented in this encounter
--- OUTSIDE RECORDS SUMMARY | 2024-09-30 08:50 | XMS_ITS | Encounter Summary ---
Author Organization [employer] ([place], [place], [place], [place]) Address [address] [place] [address] Care Team Providers Care Electronics Supervisor Name Role Phone Unavailable Primary Care Provider Unavailabl e Encounter Details Date Type Department Care Team (Late st Contact Info) Description 09/11/2018 Transcribed Document [facility] [place] [address] [place] [address] ProviderHanna MD [address] [place], [place] [phone] Social History Tobacco Use Types Packs/Day Years Used Date Smoking Tobacco: Never Assessed Comments Unknown Sex and Gender Information Value Date Recorded Sex Assigned at Not on file Legal Sex Female 6:37 PM CDT Gender Identity Not on file Sexual Orientation Not on file documented as of this encounter Miscellaneous Notes * Cerner Conversion Note - Historical ProviderMD - 09/11/2018 10:54 AM CDT Admission Data, OB Entered On: 09/11/2018 10:54 EDT Performed On: 09/11/2018 10:54 EDT by MATILDE YOU, RN Advance Directive Patient has Advance Directive *Q : No, patient refuses Advance Directive information MATILDE YOU, RN - 09/11/2018 10:54 EDT Order Details Transport Mode Order Detail : Wheelchair Isolation Precautions Order Detail : Standard Precautions Order Detail : 0 IV Order Detail : 1 Oxygen Order Detail : 0 Nurse Collect Order Detail : 0 Lift/Transfer : Independent Central Line Order Detail : No Room Service : Appropriate Arterial Line : No MATILDE YOU RN - 09/11/2018 10:54 EDT documented in this encounter Plan of Treatment Not on file documented as of this encounter Visit Diagnoses Not on filedocumented in this encounter
--- OUTSIDE RECORDS SUMMARY | 2024-09-30 08:50 | XMS_ITS | Encounter Summary ---
Author Organization [employer] ([place], [place], [place], [place]) Address [address] [place] [address] Care Team Providers Care Rn Camp Name Role Phone Unavailable Primary Care Provider Unavailabl e Encounter Details Date Type Department Care Team (Late st Contact Info) Description 09/11/2018 Transcribed Document [facility] [place] [address] [place] [address] ProviderHanna MD [address] [place], [place] 832981 Social History Tobacco Use Types Packs/Day Years Used Date Smoking Tobacco: Never Assessed Comments Unknown Sex and Gender Information Value Date Recorded Sex Assigned at Not on file Legal Sex Female 6:37 PM CDT Gender Identity Not on file Sexual Orientation Not on file documented as of this encounter Miscellaneous Notes * Cerner Conversion Note - Hanna ProviderMD - 09/11/2018 7:35 PM CDT Marketing Research Intern Details Entered On: 09/11/2018 19:35 EDT Performed On: 09/11/2018 19:35 EDT by SAMINA ALFONSO RN Order Details Transport Mode Order Detail : Wheelchair Isolation Precautions Order Detail : Standard Precautions Order Detail : 0 IV Order Detail : 1 Oxygen Order Detail : 0 Nurse Collect Order Detail : 0 Lift/Transfer : Independent Central Line Order Detail : No Room Service : Appropriate Arterial Line : No SAMINA ALFONSO RN - 09/11/2018 19:35 EDT Electronically signed by Melany [facility] Conversion Mid Level Project Manager Cerner at 06/04/2022 10:59 AM CDT documented in this encounter Plan of Treatment Not on file documented as of this encounter Visit Diagnoses Not on filedocumented in this encounter
--- OUTSIDE RECORDS SUMMARY | 2024-09-30 08:50 | XMS_ITS | Clinical Summary ---
Author Organization [employer] ([place], [place], [place]) Address [address] [place] [address] Care Team Providers Care Shank Taper Name Role Phone Unavailable Primary Care Provider [...]
[2024-09-30 09:11] LABS: Microscopic, Urine URINE MICROSCOPIC (MICROSCOPIC)
[2024-09-30 09:26] LABS: Hematocrit 42.4 % (37.0-47.0); Hemoglobin 13.8 g/dL (12.2-16.2); Immature Granulocytes % 0.2 %; Mean Corpuscular HGB Conc 32.5 g/dL (31.8-35.4); Mean Corpuscular Hemoglobin 29.4 pg (27.0-31.2); Mean Corpuscular Volume 90.4 fl (81-99); Nucleated Red Blood Cells % 0 %; Platelet Count 295 K/mm3 (142-424); Red Blood Count 4.69 M/mm3 (4.20-5.40); Red Cell Distribution Width-SD 42.5 fL; White Blood Count 9.2 K/mm3 (4.8-10.8)
[2024-09-30 09:43] LABS: Glucose,Urine (UA) Negative (Negative); Ketones,Urine Negative (Negative); Leukocyte Esterase,Urine Negative (Negative); PH,Urine 6.0 (5.0-8.5); Protein,Urine 1+ (Negative); Specific Gravity, Urine >= 1.030 (1.005-1.030); Urobilinogen,Urine 1.0 EU/dl (0.2)
[2024-09-30 09:49] LABS: Bilirubin,Urine 1+ (Negative); Color,Urine Dark Yellow (Yellow)
[2024-09-30 10:30] LABS: Albumin Level 4.1 g/dl (3.5-5.0); Chloride 104 mmol/L (98-107); Potassium 4.3 mmoL/L (3.5-5.1); Sodium 140 mmol/L (136-145)
[2024-09-30 10:32] LABS: Amylase 53 U/L (30-110); Anion Gap 10.3 mEq/L (5-15); Bacteria,Urine Trace /lpf; Blood Urea Nitrogen 13 mg/dl (7-17); Carbon Dioxide 30 mmol/L (22.0-30.0); Creatinine,Serum 0.60 mg/dl (0.52-1.04); Estimated Glomerular Filt Rate 108 ml/min (>60); GFR (African American) 131 ML/MIN (>60); RBC,Urine Occasional #/hpf (0-3)
[2024-09-30 10:33] LABS: Alanine Aminotransferase 17 U/L (12-78); Albumin/Globulin Ratio 1.6 (1.1-1.8); Alkaline Phosphatase 69 U/L (38-126); Aspartate Amino Transferase 20 U/L (14-36); Bilirubin,Total 0.5 mg/dl (0.2-1.3); Calcium 8.8 mg/dl (8.4-10.2); Globulin 2.6 g/dL (1.3-3.2); Glucose 101 mg/dl (74-100); Lipase 71 U/L (23-300); Total Protein,Serum 6.7 g/dl (6.3-8.2)
== END 2024-09-30 23:59 | disposition home or self-care (01) ==
LOC: RAD 08:42
PROVIDERS: PCP Internal Medicine Adolescent Medicine; Visit Provider Nurse Practitioner Family
DX: K76.0 Fatty (change of) liver, not elsewhere classified (principal); K80.20 Calculus of gallbladder without cholecystitis without obstruction; K83.8 Other specified diseases of biliary tract
CPT/HCPCS: 36415; 76705; 80053; 81001; 82150; 83690; 84702; 85025

== ENCOUNTER 2024-10-05 10:23 | Outpatient (CLI) | payer BC, SELFPAY ==
--- OUTSIDE RECORDS SUMMARY | 2024-10-05 10:25 | XMS_ITS | Encounter Summary ---
Author Organization [employer] ([place], [place], [place], [place]) Address [address] [place] [address] Care Team Providers Care Technical Report Writer Name Role Phone Unavailable Primary Care Provider Unavailabl e Encounter Details Date Type Department Care Team (Late st Contact Info) Description 09/14/2018 Transcribed Document [facility] [place] [facility] [place] [address] ProviderHanna MD [address] [place] [address] [id number] Social History Tobacco Use Types Packs/Day Years [...] soap and warm water or in the lamination assembler, if the parts are lamination assembler safe. You do not need to clean [...] can. ??? Your health care provider or senior business consultant can help you decide which breast [...] 07/24/2010 Document Revised: 03/10/2017 Document Reviewed: 03/10/2017 [employer] Patient Education ? 2019 [employer] Delivery, Care After Refer to this [...] and water are not available, use hand edger operator. ? If you have a dressing, change [...] until your incision heals. Medicines ??? Take dcpy-wwb-rlbfcsh and prescription medicines only as told by [...] 10/26/2002 Document Revised: 03/08/2017 Document Reviewed: 01/08/2016 [employer] Patient Education ? 2018 [employer] documented in this encounter Plan of Treatment Not on file documented as of this encounter Visit Diagnoses Not on filedocumented in this encounter
--- OUTSIDE RECORDS SUMMARY | 2024-10-05 10:25 | XMS_ITS | Encounter Summary ---
Author Organization [employer] ([place], [place]) Address [address] [place] [address] Care Team Providers Care Director Epidemiology Name Role Phone Unavailable Primary Care Provider Unavailabl e Encounter Details Date Type Department Care Team (Late st Contact Info) Description 09/11/2018 Transcribed Document [facility] [place] [address] [place] [address] ProviderHanna MD [address] [place], [place] [phone] Social History Tobacco Use Types Packs/Day Years [...]
--- OUTSIDE RECORDS SUMMARY | 2024-10-05 10:25 | XMS_ITS | Clinical Summary ---
Author Organization [employer] ([place], [place], [place], [place]) Address [address] [place] [address] Care Team Providers Care Return Agent Name Role Phone Unavailable Primary Care Provider [...]
--- OUTSIDE RECORDS SUMMARY | 2024-10-05 10:25 | XMS_ITS | Encounter Summary ---
Author Organization [employer] ([place], [place], [place], [place]) Address [address] [place] [address] Care Team Providers Care Complaint Clerk Name Role Phone Unavailable Primary Care Provider Unavailabl e Encounter Details Date Type Department Care Team (Late st Contact Info) Description 09/11/2018 Transcribed Document [facility] [place] [address] [place] [address] ProviderHanna MD [address] [place], [place] 3208[address] Social History Tobacco Use Types Packs/Day Years Used Date Smoking Tobacco: Never Assessed Comments Unknown Sex and Gender Information Value Date Recorded Sex Assigned at Not on file Legal Sex Female 6:37 PM CDT Gender Identity Not on file Sexual Orientation Not on file documented as of this encounter Miscellaneous Notes * Cerner Conversion Note - Hanna ProviderMD - 09/11/2018 7:35 PM CDT Documentation Consultant Details Entered On: 09/11/2018 19:35 EDT Performed [...] 09/11/2018 19:35 EDT Electronically signed by Melany [facility] Conversion Editorial Clerk Cerner at 06/04/2022 10:59 AM CDT documented in this encounter Plan of Treatment Not on file documented as of this encounter Visit Diagnoses Not on filedocumented in this encounter
--- OUTSIDE RECORDS SUMMARY | 2024-10-05 10:25 | XMS_ITS | Referral Summary ---
Author Organization [employer] ([place], [place], [place], [place]) Address [address] [place] [address] Care Team Providers Care Director Of Plant Operations Name Role Phone Unavailable Primary Care Provider [...]
--- OUTSIDE RECORDS SUMMARY | 2024-10-05 10:25 | XMS_ITS | Encounter Summary ---
Author Organization [employer] ([place], [place]) Address [address] [place] [address] Care Team Providers Care Residential Monitor Name Role Phone Unavailable Primary Care Provider Unavailabl e Encounter Details Date Type Department Care Team (Late st Contact Info) Description 09/13/2018 Transcribed Document [facility] [place] [address] [facility] [address] [place] [address] Vidhya Dasilva MD [address], [address] [place] [address] Social History Tobacco Use Types Packs/Day Years [...]
--- OUTSIDE RECORDS SUMMARY | 2024-10-05 10:25 | XMS_ITS | Encounter Summary ---
Author Organization [employer] ([place]) Address [address] [place] [address] Care Team Providers Care Elevator Supervisor Name Role Phone Unavailable Primary Care Provider Unavailabl e Encounter Details Date Type Department Care Team (Late st Contact Info) Description 09/12/2018 Transcribed Document [facility] COUNSELING SERVICES MANAGER - [place] [address] [facility] [address] [place] [address] Vidhya Dasilva MD [address] [facility], [address] [place] [address] Social History Tobacco Use Types Packs/Day Years Used Date Smoking Tobacco: Never Assessed Comments Unknown Sex and Gender Information Value Date Recorded Sex Assigned at Not on file Legal Sex Female 6:37 PM CDT Gender Identity Not on file Sexual Orientation Not on file documented as of this encounter Miscellaneous Notes * Cerner Conversion Note - Vidhay Dasilva MD - 09/12/2018 1:07 PM EDT [...]
--- OUTSIDE RECORDS SUMMARY | 2024-10-05 10:25 | XMS_ITS | Encounter Summary ---
Author Organization [employer] ([place], [place]) Address [address] [place] [address] Care Team Providers Care Monotype Keyboard Operator Name Role Phone Unavailable Primary Care Provider Unavailabl e Encounter Details Date Type Department Care Team (Late st Contact Info) Description 09/17/2018 Transcribed Document [facility] [place] [facility] [place] [address] ProviderHanna MD [facility] [place], [place] [address] Social History Tobacco Use Types Packs/Day Years [...]
--- OUTSIDE RECORDS SUMMARY | 2024-10-05 10:25 | XMS_ITS | Encounter Summary ---
Author Organization [employer] ([place]) Address [address] [place] [address] Care Team Providers Care Police Academy Instructor Name Role Phone Unavailable Primary Care Provider Unavailabl e Encounter Details Date Type Department Care Team (Late st Contact Info) Description 09/11/2018 Transcribed Document [facility] [place] [address] [place] [address] ProviderHanna MD [address] [place], [place] [address] Social History Tobacco Use Types Packs/Day Years [...]
--- OUTSIDE RECORDS SUMMARY | 2024-10-05 10:25 | XMS_ITS | Encounter Summary ---
Author Organization [employer] ([place], [place], [place], [place]) Address [address] [place] [address] Care Team Providers Care Wardrobe Consultant Name Role Phone Unavailable Primary Care Provider Unavailabl e Encounter Details Date Type Department Care Team (Late st Contact Info) Description 09/14/2018 Transcribed Document [facility] Family Medicine [facility] [place] [address] ProviderHanna MD [address] [place] [address] [id number] Social History Tobacco Use Types Packs/Day Years [...] Cartagena MD - 09/14/2018 12:30 PM CDT [place] [id number] FLORESITA LEONARDO :1980 Visit Time:09/11/2018 Your Visit [...] 7-10 days Follow-Up Appointments Follow Up with ADMIEN FLANAGAN When 09/24/2018 11:00 AM EDT Where: [address] [facility] [employer] BUSINESS TRADER [address] [place] [phone] Business (1) Medications What How Much When [...] soap and warm water or in the pipe organ mechanic, if the parts are pipe organ mechanic safe. You do not need to clean [...] can. ??? Your health care provider or library consultant can help you decide which breast [...] 07/24/2010 Document Revised: 03/10/2017 Document Reviewed: 03/10/2017 [employer] Interactive Patient Education ?? 2019 [employer] Delivery, Care After Refer to this [...] and water are not available, use hand assistant auditor. ? If you have a dressing, change [...] until your incision heals. Medicines ??? Take wjyq-xbt-rjdhplx and prescription medicines only as told by [...] 10/26/2002 Document Revised: 03/08/2017 Document Reviewed: 01/08/2016 [facility] Interactive Patient Education ?? [address] ibuprofen (EYE bue PROE fen) Advil, Genpril, IBU, Midol IB, Motrin IB, Proprinal, Smart Sense Children's Ibuprofen What is the most important information I should know about ibuprofen? Ibuprofen can increase your risk of fatal heart attack or stroke, especially if you use it continuous churn buttermaker or take high doses, or if you [...] or stroke, especially if you use it continuous churn buttermaker or take high doses, or if you [...] may report side effects to FDA at 7-162-PVW-5186. What other drugs will affect ibuprofen? Ask [...] may interact with ibuprofen, including prescription and eflf-adt-vjikqyq medicines, vitamins, and herbal products. Not all [...] to ensure that the information provided by [employer]. ('[employer]') is accurate, up-to-date, and complete, but no guarantee is made to that effect. Drug information contained herein may be time sensitive. [employer] information has been compiled for use by healthcare practitioners and consumers in the [place] and therefore [employer] does not warrant that uses outside of the [place] are appropriate, unless specifically indicated otherwise. [employer]'s drug information does not endorse drugs, diagnose patients or recommend therapy. [employer] drug information is an informational resource designed [...] effective or appropriate for any given patient. [employer] does not assume any responsibility for any aspect of healthcare administered with the aid of information [employer] provides. The information contained herein is not intended to cover all possible uses, directions, precautions, warnings, drug interactions, allergic reactions, or adverse effects. If you have questions about the drugs you are taking, check with your doctor, nurse or pharmacist. Copyright 2081-6459 [employer]. Version: 18.01. Revision Date: 05/16/2016.acetaminophen and oxycodone [...] may report side effects to FDA at 1-343-AXV-1186. What other drugs will affect acetaminophen and [...] affect acetaminophen and oxycodone, including prescription and bray-sds-mbbznbc medicines, vitamins, and herbal products. Not all [...] to ensure that the information provided by [employer]. ('[employer]') is accurate, up-to-date, and complete, but no guarantee is made to that effect. Drug information contained herein may be time sensitive. [employer] information has been compiled for use by healthcare practitioners and consumers in the [place] and therefore [employer] does not warrant that uses outside of the [place] are appropriate, unless specifically indicated otherwise. [employer] drug information does not endorse drugs, diagnose patients or recommend therapy. [employer] drug information is an informational resource designed [...] effective or appropriate for any given patient. [facility] does not assume any responsibility for any aspect of healthcare administered with the aid of information [facility] provides. The information contained herein is not intended to cover all possible uses, directions, precautions, warnings, drug interactions, allergic reactions, or adverse effects. If you have questions about the drugs you are taking, check with your doctor, nurse or pharmacist. Copyright 6768-5505 [employer] [facility]. Version: 18.02. Revision Date: 01/14/2018. Emergency Awareness [...] Assistance with quitting is available by contacting 4-692-MOVA-NOW. This is a free resource providing counseling, [...] range between ( 1.0 and 7.0 ) Sherman #: 0.99 K/uL -- Normal range between ( 0.24 and 0.82 ) Eos #: 0.07 K/uL -- Normal range between ( 0.04 and 0.54 ) Sherman %: 9.3 % -- Normal range between [...] was given the opportunity to ask questions. Patient/Classifications Officer Cc/Cm Name: Patient/Classifications Officer Cc/Cm Signature: Relationship to Patient: Clinician/Hospital Classifications Officer Cc/Cm Signature: Date: documented in this encounter Plan of Treatment Not on file documented as of this encounter Visit Diagnoses Not on filedocumented in this encounter
--- OUTSIDE RECORDS SUMMARY | 2024-10-05 10:25 | XMS_ITS | Encounter Summary ---
Author Organization [employer] ([place], [place], [place], [place]) Address [address] [place] [address] Care Team Providers Care Break Out Worker Name Role Phone Unavailable Primary Care Provider Unavailabl e Encounter Details Date Type Department Care Team (Late st Contact Info) Description 09/11/2018 Transcribed Document [facility] [place] [address] [place] [address] ProviderHanna MD [address] [place], [place] [id number] Social History Tobacco Use Types Packs/Day Years [...] Source : Measured Height Entry Format : [place] Height, Feet : 5 ft(Converted to: 152 cm, 60 Inch) Clinical Height : 172.72 cm Height, Inches : 8 Inch(Converted to: 0 ft 8 Inch, 20.32 cm) Weight Source : Standing scale Weight Entry Format : [place] Weight, Pounds : 317 lb Clinical Dosing Weight : 144.09 kg Body Surface Area (BSA) : 2.49 m2 Body Mass Index : 48.3 kg/m2 (>HHI) [place] Body Weight (IBW) : 63.45 kg PARMINDER [...]
--- OUTSIDE RECORDS SUMMARY | 2024-10-05 10:25 | XMS_ITS | Encounter Summary ---
Author Organization [employer] ([place], [place], [place], [place]) Address [address] [place] [address] Care Team Providers Care Tibco Developer Name Role Phone Unavailable Primary Care Provider Unavailabl e Encounter Details Date Type Department Care Team (Late st Contact Info) Description 09/11/2018 Transcribed Document [facility] [address] [place] [address] ProviderHanna MD [address] [place], [place] 2[address]11 Social History Tobacco Use Types Packs/Day Years [...] 1 Health Plan: ANTHEM HMOPPO Policy Number: [id number] Authorization Number: Insurance 2 Health Plan: ANTHEM HMOPPO Policy Number: [id number] Authorization Number: Insurance Primary Name : Lincoln [...] 09/11/2018 13:46 EDT Electronically signed by Melany [facility] Conversion Professor Of Political Science Cerner at 06/04/2022 10:49 AM CDT documented in this encounter Plan of Treatment Not on file documented as of this encounter Visit Diagnoses Not on filedocumented in this encounter
--- OUTSIDE RECORDS SUMMARY | 2024-10-05 10:25 | XMS_ITS | Encounter Summary ---
Author Organization [email or web address] ([place], [place], [place], [place]) Address [address] [place] [address] Care Team Providers Care Jet Aircraft Servicer Name Role Phone Unavailable Primary Care Provider Unavailabl e Encounter Details Date Type Department Care Team (Late st Contact Info) Description 09/12/2018 Transcribed Document [facility] [place] [address] [place] [address] ProviderHanna MD [address] [place], [place] [phone] Social History Tobacco Use Types Packs/Day Years [...]
--- OUTSIDE RECORDS SUMMARY | 2024-10-05 10:25 | XMS_ITS | Encounter Summary ---
Author Organization [email or web address] ([place], [place], [place], [place]) Address [address] [place] [address] Care Team Providers Care Watch Crystal Cutter Name Role Phone Unavailable Primary Care Provider Unavailabl e Encounter Details Date Type Department Care Team (Late st Contact Info) Description 09/15/2018 Transcribed Document [facility] [place] Family Medicine [facility] [place] [address] ProviderHanna MD [address] [place] [id number] Social History Tobacco Use Types Packs/Day Years [...] section via Pfannenstiel. SURGEON: Breanna Hanna DO TOBACCO STRIPPING MACHINE OPERATOR: Floridalma Castillo PA-C. ANESTHESIA: Spinal. COMPLICATIONS: None [...] Trans: 09/15/2018 15:54:33 CC1: Breanna Hanna D.O. Electronically signed by Melany, [facility] Conversion Dietary Aid Cerner at 06/04/2022 10:43 AM CDT documented in this encounter Plan of Treatment Not on file documented as of this encounter Visit Diagnoses Not on filedocumented in this encounter
[2024-10-05 10:38] VITALS: BMI 47.2
--- NOTE | 2024-10-05 10:53 | ECG_ITS ---
APPROVED REPORT Exam: Resting ECG HR:63 bpm ECG Measurements Heart Rate 63 AXES MA 188 P 43 QRSd 145 QRS 89 QT 420 T 46 QTc 428 Conclusion SINUS RHYTHM RIGHT BUNDLE BRANCH BLOCK [120+ ms QRS DURATION, UPRIGHT V1, 40+ ms S IN I/aVL/V4/V5/V6] ABNORMAL ECG UNCONFIRMED REPORT Electronically signed by : Boby Anderson MD 10/05/2024 17:05:54
== END 2024-10-05 23:59 | disposition home or self-care (01) ==
LOC: PREOP 10:24
PROVIDERS: PCP Internal Medicine Adolescent Medicine; Visit Provider Surgery
DX: Z01.810 Encounter for preprocedural cardiovascular examination (principal); I45.10 Unspecified right bundle-branch block; R94.31 Abnormal electrocardiogram [ECG] [EKG]
CPT/HCPCS: 93005

== ENCOUNTER 2024-10-11 09:57 | Day surgery (SDC) | payer BC, SELFPAY ==
[2024-10-05 13:11] VITALS: BMI 47.2
[2024-10-11] VITALS (11 sets, daily range): BP systolic 94–148; BP diastolic 56–87; PULSE 83–93; RESP 16–18; TEMP 36.1–43; O2SAT 92–98
[2024-10-11] MEDS: LACTATED RINGERS 1000ML 1,000 ML 25 ML IV (10:12)
[2024-10-11 10:16] LABS: Urine Pregnancy, HCG Qual. Negative (Negative)
--- NOTE | 2024-10-11 10:45 | EXP.ANES.CKL ---
[facility] Disclaimer: The information contained in this section may have been updated after the patient was seen, as this information can be updated by other users. Medical History History of blood clot to lungs during No significant past medical history Abscess of right breast Bilateral pulmonary embolism Surgical History History of laparoscopy History of section History of right breast biopsy History of appendectomy History of colonoscopy Family History Other Family history of [place] (myocardial infarction) Social History Smoking Status: Current every day smoker tobacco type: cigarettes packs per day: 1 alcohol intake: never substance use type: denies use current occupational status: employed Travel in the last 8 weeks?: None household members: spouse and children housing: house 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 Have you lived/traveled outside US in past 30 days?: No Contact w/someone who lives/traveled outside US past 30 days?: No Exposure to someone with infectious disease in past 14 days?: No Do you have a fever (greater than 100.4 F or 38 C)?: No Have you tested positive for COVID-19?: No Exposed to someone with COVID-19 in past 14 days?: No Do you have a sore throat?: No Do you have a cough?: No Do you have any weakness?: No Do you have any diarrhea?: No Are you experiencing any unusual bleeding?: No Do you have any muscle aches/pain?: No Do you have any abdominal pain?: No Are you experiencing loss of taste or smell?: No [facility] Anesthesia Checklist Patient Identification Patient Identification: Arm Band and Family Structural Data Admitted From: Home Planned Operative Procedure/s: Lap Mercedes Consent for Planned Operative Procedure(s) Verified: Yes Verified Documents: Surgical Consent and History and Physical NPO Status Verified Time NPO: 00:00 Additional verifications Patient : No Anesthesia Reactions: No (drowsiness) Hx Blood Transfusions: No Blood Transfusion Reaction: No Cephalosporin Allergy: No Previous Colonoscopy: Yes Airway Assessment Mallampati Score:: Class II C-Spine Mobility Assessed: Yes TMJ Mobility Assessed: Yes Dentition: Good Dentition Neurological Assessment Level of Consciousness: Awake, Alert, Appropriate and Follows Commands Hx Seizures: No Numbness or tingling in extremities: No Anesthesia Plan Anesthesia Risk discussed: Yes ASA Class: III Anesthesia Type: General Preoperative Comments Pre-Operative Comments: MO. Clifford.
[2024-10-11] MEDS: LIDOCAINE 1% 20ML MDV 20 ML (13:18)
--- NOTE | 2024-10-11 14:33 | EXP.OP.NOTE ---
Date of procedure: 10/11/24 Pre-op Diagnosis:: Gallbladder disease, cholecystitis Post-op Diagnosis:: Same Procedure performed:: Laparoscopic cholecystectomy Surgeon:: Corbin Armas MD Anesthesia: RUFINA Estimated blood loss (mL): 30 Clinical Note:: Patient is a 44-year-old female with history of hypertension, previous bilateral pulmonary emboli when she was 3 weeks , referred by Marie Miranda for gallstones. 6 days ago she awoke with significant vomiting and epigastric pain radiating to the right upper quadrant. This occurred after eating tacos that evening. The pain has somewhat subsided but she has had ongoing nausea. Gallbladder ultrasound on 09/30/2024 reveals fatty liver. Gallstones with borderline gallbladder wall thickening. Dilated common bile duct at 7 mm. Recent liver function tests are normal. She has had previous low midline open laparotomy for endometriosis as well as laparoscopy. I reviewed her ultrasound imaging. It appears as though she has at least 1 small to moderate echogenic stone along with some debris versus sludge and mild gallbladder wall thickening. Common bile duct does not necessarily appear dilated. She is likely having some degree of symptomatic gallstones with ongoing nausea and tenderness to palpation. She would like to pursue surgery. Arrangements will be made. Likely will give preoperative DVT prophylaxis with Lovenox as well as SCDs. Operative findings:: She had a very thickened leathery gallbladder. There was evidence of acute on chronic inflammation. It was somewhat intrahepatic. Operative note:: Consent was obtained and patient was taken to the operating room. She was given preoperative intravenous antibiotics. In the operating room she was placed in a supine position. General anesthesia was induced via endotracheal tube. Given the patient's previous low midline laparotomy through a left subcostal incision optical trocar was inserted under laparoscopic visualization. CO2 pneumoperitoneum was achieved to 15 mmHg. Laparoscopic surveillance was carried out. She actually had minimal omental adhesions in the lower abdomen. He had a 5 mm trocar inserted in the supraumbilical location. She was positioned in reverse Trendelenburg and left side down. A couple 5 mm trocars were inserted in the right upper abdomen. 11 mm trocar was inserted in the epigastrium. Gallbladder was identified. It was grasped retracted anteriorly. It was very thickened and somewhat leathery. There were omental adhesions to the gallbladder. These were taken down using mostly blunt dissection with limited use of ultrasonic harmonic eve. Ultimately the neck of the gallbladder was identified and retracted anterior laterally. The 0 degree laparoscope was replaced with the 5 mm 30 degree laparoscope to allow for visualization of the neck of the gallbladder and yvan hepatis. Blunt dissection was carried out ultimately identifying the cystic duct and cystic artery. Cystic duct was isolated, multiply clipped, and sharply divided. Cystic artery was carefully coagulated with USSY ultrasonic robotic eve and divided. Gallbladder was dissected free from the liver in a retrograde fashion using mostly ultrasonic harmonic eve with some blunt dissection. There was evidence of an acute on chronic inflammation and it was somewhat intrahepatic. Ultimately it was freed from the liver. Gallbladder was placed within an Endo Catch retrieval device and removed from the peritoneal cavity via the epigastric trocar site which required extension of the skin and fascia for delivery. CO2 pneumoperitoneum was reestablished. Laparoscopic electrocautery was used on the gallbladder fossa for hemostasis. There appeared to be good hemostasis. Thorough irrigation and suctioning was performed. Fascia at the epigastric site was closed with the laparoscopic neoclose device using multiple neoclose anchors . This resulted in fascial closure with no evidence of any obvious defect. Trocars were then removed as CO2 pneumoperitoneum was evacuated. Local anesthetic was infiltrated. Skin incisions were closed with 4-0 Monocryl in a subcuticular fashion. Steri-Strips and dressings were applied. Condition: stable Disposition: PACU Complications:: None immediately apparent
--- NOTE | 2024-10-11 14:48 | EXP.ANES.I ---
[facility] Anesthesia Record Part I Anesthesia Record I Intake, IV Amount: 900 Hydration: Adequate Estimated blood loss (mL): 30 Urine output (mL): 0 Blood Products used (#): none Blood Pressure: 94/77 SaO2: 98 Pulse Rate: 93 Airway Patency: Patent Respiratory Rate: 16 Temperature: 97.3 F Patient is:: Drowsy and Stable Stable to PACU at:: 14:40
[2024-10-11] MEDS: MORPHINE 2MG/ML SYRINGE 2 MG IV (15:01)
[2024-10-11] MEDS: PROMETHAZINE HCL 25MG/ML 1ML VIAL 25 MG (15:07)
[2024-10-11] MEDS: 0.9 % SODIUM CHLORIDE 25 ML IV (15:07)
--- NOTE | 2024-10-12 10:54 | EXP.ANES.II ---
[facility] Anesthesia Record Part II Anesthesia Record Part II Discharge Time: 15:51 Destination: Surgical Day Care (OP Surgery) PACU nurse assessment reviewed?: Yes Patient Condition:: Good Anesthesia Complications:: None Swallowing reflex intact?: Yes Airway Patency: Patent Cyanosis?: No Blood Pressure: 128/86 SaO2: 95 Respiratory Rate: 18 Pulse Rate: 87 Temperature: 97.3 F Mental Status: Alert & Oriented Pain level:: 0 Nausea and/or vomitting:: None Intake, IV Amount: 0 Hydration: Adequate
[2024-10-12 10:55] VITALS: BP 128/86; PULSE 87; RESP 18; TEMP 36.3; O2SAT 95
== END 2024-10-11 15:51 | disposition home or self-care (01) ==
PROVIDERS: PCP Internal Medicine Adolescent Medicine; Visit Provider Surgery
PROC: 0FT44ZZ Resection of Gallbladder, Percutaneous Endoscopic Approach (ICD-10-PCS; CPT 47562; principal; 2024-10-11 11:40)
DX: K80.12 Calculus of gallbladder with acute and chronic cholecystitis without obstruction (principal); I10 Essential (primary) hypertension; Z86.711 Personal history of pulmonary embolism; K66.0 Peritoneal adhesions (postprocedural) (postinfection); E66.9 Obesity, unspecified; Z68.42 Body mass index [BMI] 45.0-49.9, adult; Z79.899 Other long term (current) drug therapy; F17.210 Nicotine dependence, cigarettes, uncomplicated; I45.10 Unspecified right bundle-branch block
CPT/HCPCS: 47562; 81025; J0690; J1100; J1650; J2003; J2250; J2270; J2405; J2550; J2704; J2795; J3010; J7120

== ENCOUNTER 2024-12-20 11:05 | Outpatient (CLI) | payer BC, SELFPAY ==
--- OUTSIDE RECORDS SUMMARY | 2024-12-20 11:10 | XMS_ITS | Encounter Summary ---
Author Organization [employer] ([place], [place], [place], [place], [place]) Address [address] [place] [address] Care Team Providers Care Solar Systems Designer Name Role Phone Unavailable Primary Care Provider Unavailabl e Encounter Details Date Type Department Care Team (Late st Contact Info) Description 09/12/2018 Transcribed Document [facility] TRAUMA COORDINATOR - CaseReader [address] [facility] [address] [place] [address] Vidhya Dasilva MD [address] [facility], [address] [place] [address] Social History Tobacco Use Types Packs/Day Years [...] scheduled for 6 week visit: Yes(_)/No(_) Data [place] (_) NICU (_) Medications Inpatient acetaminophen-oxyCODONE 325 [...]
--- OUTSIDE RECORDS SUMMARY | 2024-12-20 11:10 | XMS_ITS | Clinical Summary ---
Author Organization [employer] ([place], [place], [place], [place], [place]) Address [address] [place] [address] Care Team Providers Care Erection Shop Supervisor Name Role Phone Unavailable Primary Care [...]
--- OUTSIDE RECORDS SUMMARY | 2024-12-20 11:10 | XMS_ITS | Encounter Summary ---
Author Organization [employer] ([place], [place], [place], [place], [place]) Address [address] [place] [address] Care Team Providers Care Tool Polisher Name Role Phone Unavailable Primary Care Provider Unavailabl e Encounter Details Date Type Department Care Team (Late st Contact Info) Description 09/11/2018 Transcribed Document [facility] [place] Family Medicine [address] [place] [address] ProviderHanna MD [address] [place], [place] [phone] Social History Tobacco Use Types Packs/Day Years [...] 1 Health Plan: ANTHEM HMOPPO Policy Number: [id number] Authorization Number: Insurance 2 Health Plan: ANTHEM HMOPPO Policy Number: [id number] Authorization Number: Insurance Primary Name : Lincoln DLB Authorization Status-Primary : No precert required Authorization Number-Primary : Auto 2/4 Number of Days Authorized-Primary : 4 Authorized Service Begin Date-Primary : 09/11/2018 EDT Authorized Service End Date-Primary : 09/14/2018 EDT Authorization Comments-Primary : Auto 2/4 Historical Authorization Comments-Primary : No Authorization Comments Found AUGUSTO PALMER Rn-Utilization Review - 09/11/2018 13:46 EDT documented in this encounter Plan of Treatment Not on file documented as of this encounter Visit Diagnoses Not on filedocumented in this encounter
--- OUTSIDE RECORDS SUMMARY | 2024-12-20 11:10 | XMS_ITS | Encounter Summary ---
Author Organization [employer] ([place], [place], [place], [place], [place]) Address [address] [place] [address] Care Team Providers Care Artists' Model Name Role Phone Unavailable Primary Care Provider Unavailabl e Encounter Details Date Type Department Care Team (Late st Contact Info) Description 09/12/2018 Transcribed Document [facility] [place] [address] [place] [address] ProviderHanna MD [address] [place], [place] [address] Social History Tobacco Use Types Packs/Day Years [...]
--- OUTSIDE RECORDS SUMMARY | 2024-12-20 11:10 | XMS_ITS | Encounter Summary ---
Author Organization [employer] ([place], [place], [place], [place], [place]) Address [address] [place] [address] Care Team Providers Care Automotive Product Engineer Name Role Phone Unavailable Primary Care Provider Unavailabl e Encounter Details Date Type Department Care Team (Late st Contact Info) Description 09/17/2018 Transcribed Document [facility] [place] Family Medicine Pending [facility] to [facility] [place] [address] ProviderHanna MD [place] [address] Social History Tobacco Use Types Packs/Day Years [...]
--- OUTSIDE RECORDS SUMMARY | 2024-12-20 11:10 | XMS_ITS | Referral Summary ---
Author Organization [employer] ([place], [place], [place], [place], [place]) Address [address] [place] [address] Care Team Providers Care Boom Stick Man Name Role Phone Unavailable Primary Care Provider [...]
--- OUTSIDE RECORDS SUMMARY | 2024-12-20 11:10 | XMS_ITS | Encounter Summary ---
Author Organization [employer] ([place], [place], [place], [place], [place]) Address [address] [place] [address] Care Team Providers Care Riverboat Master Name Role Phone Unavailable Primary Care Provider Unavailabl e Encounter Details Date Type Department Care Team (Late st Contact Info) Description 09/14/2018 Transcribed Document [facility] [place] Family Medicine [facility] [place] [address] ProviderHanna MD [address] [place] [id number] Social History Tobacco Use Types Packs/Day Years [...] soap and warm water or in the industrial manufacturing technician, if the parts are industrial manufacturing technician safe. You do not need to clean [...] can. ??? Your health care provider or sr risk management consultant can help you decide which breast [...] 07/24/2010 Document Revised: 03/10/2017 Document Reviewed: 03/10/2017 [employer] Interactive Patient Education ? 2019 [employer] Delivery, Care After Refer to this [...] and water are not available, use hand foreclosure specialist. ? If you have a dressing, change [...] until your incision heals. Medicines ??? Take iqxc-jth-ropdvab and prescription medicines only as told by [...] 10/26/2002 Document Revised: 03/08/2017 Document Reviewed: 01/08/2016 [employer] Interactive Patient Education ? 2018 [employer] documented in this encounter Plan of Treatment Not on file documented as of this encounter Visit Diagnoses Not on filedocumented in this encounter
--- OUTSIDE RECORDS SUMMARY | 2024-12-20 11:10 | XMS_ITS | Encounter Summary ---
Author Organization [employer] ([place], [place], [place], [place], [place]) Address [address] [place] [address] Care Team Providers Care Improvement Coordinator Name Role Phone Unavailable Primary Care Provider Unavailabl e Encounter Details Date Type Department Care Team (Late st Contact Info) Description 09/11/2018 Transcribed Document [facility] [place] Family Medicine [address] [place] [address] ProviderHanna MD [address] [place], [place] [id number] Social History Tobacco Use Types Packs/Day Years [...]
--- OUTSIDE RECORDS SUMMARY | 2024-12-20 11:10 | XMS_ITS | Encounter Summary ---
Author Organization [employer] ([place], [place], [place], [place], [place]) Address [address] [place] [address] Care Team Providers Care Channel Worker Name Role Phone Unavailable Primary Care Provider Unavailabl e Encounter Details Date Type Department Care Team (Late st Contact Info) Description 09/15/2018 Transcribed Document [facility] [place] [facility] [place] [address] ProviderHanna MD [address] [place] [id number] Social History Tobacco Use Types Packs/Day Years Used Date Smoking Tobacco: Never Assessed Comments Unknown Sex and Gender Information Value Date Recorded Sex Assigned at Not on file Legal Sex Female 6:37 PM CDT Gender Identity Not on file Sexual Orientation Not on file documented as of this encounter Miscellaneous Notes * Cerner Conversion Note - Hanna ProviderMD - 09/15/2018 2:59 PM CDT DATE OF [...] section via Pfannenstiel. SURGEON: Breanna Hanna DO FORM GRADER OPERATOR: Floridalma Castillo PA-C. ANESTHESIA: Spinal. COMPLICATIONS: [...] at 7:47, Apgars of 8 and 8, infant weighed 4436 g. 2. An intact placenta [...] delivery, cord was clamped twice and cut. was bulb suctioned and handed to the [...] Breanna Hanna D.O. Electronically signed by Melany, [facility] Conversion Gaming Commissioner Cerner at 06/04/2022 10:43 AM CDT documented in this encounter Plan of Treatment Not on file documented as of this encounter Visit Diagnoses Not on filedocumented in this encounter
--- OUTSIDE RECORDS SUMMARY | 2024-12-20 11:10 | XMS_ITS | Encounter Summary ---
Author Organization [employer] ([place], [place], [place], [place], [place]) Address [address] [place] [address] Care Team Providers Care Driller Portable Name Role Phone Unavailable Primary Care Provider Unavailabl e Encounter Details Date Type Department Care Team (Late st Contact Info) Description 09/11/2018 Transcribed Document [facility] [place] [address] [place] [address] ProviderHanna MD [address] [place], [place] [id number] Social History Tobacco Use Types Packs/Day Years Used Date Smoking Tobacco: Never Assessed Comments Unknown Sex and Gender Information Value Date Recorded Sex Assigned at Not on file Legal Sex Female 6:37 PM CDT Gender Identity Not on file Sexual Orientation Not on file documented as of this encounter Miscellaneous Notes * Cerner Conversion Note - Historical ProviderMD - 09/11/2018 7:35 PM CDT Landscape Designer Details Entered On: 09/11/2018 19:35 EDT Performed [...] 09/11/2018 19:35 EDT Electronically signed by Melany [facility] Conversion Diesel Crane Operator Cerner at 06/04/2022 10:59 AM CDT documented in this encounter Plan of Treatment Not on file documented as of this encounter Visit Diagnoses Not on filedocumented in this encounter
--- OUTSIDE RECORDS SUMMARY | 2024-12-20 11:10 | XMS_ITS | Encounter Summary ---
Author Organization [employer] ([place], [place], [place], [place], [place]) Address [address] [place] [address] Care Team Providers Care Plugging Machine Operator Name Role Phone Unavailable Primary Care Provider Unavailabl e Encounter Details Date Type Department Care Team (Late st Contact Info) Description 09/14/2018 Transcribed Document [facility] [place] [address] [place] [address] ProviderHanna MD [address] [place] [phone] Social History Tobacco Use Types Packs/Day Years Used Date Smoking Tobacco: Never Assessed Comments Unknown Sex and Gender Information Value Date Recorded Sex Assigned at Not on file Legal Sex Female 6:37 PM CDT Gender Identity Not on file Sexual Orientation Not on file documented as of this encounter Miscellaneous Notes * Cerner Conversion Note - Hanna ProviderMD - 09/14/2018 12:30 [place] [address] FLORESITA LEONARDO :1980 Visit Time:09/11/2018 Your Visit Summary Your Care Team Admitting Physician - DAMIEN FLANAGAN DO Attending Physician - DAMIEN FLANAGAN DO Primary Care Physician - YAMILE, NOT LISTED [...] When 09/24/2018 11:00 AM EDT Where: [address] [facility] [address] [place] [phone]- Business (1) Medications What How Much When Instructions Next Dose acetaminophen-oxyCODONE (acetaminophen-oxyCODONE 325 mg-5 mg oral tablet) 2 Tablet(s) Oral Every 4 Hours as needed for Pain (Severe 7-10) 1-2 tabs po q 4-6 hrs prn; not to exceed 12 tablets/ day 09/14/18 ibuprofen (ibuprofen 800 mg oral tablet) 1 Tablet(s) Oral Every 8 Hours Refills: 1 7/29/19 6pm cetirizine (ZyrTEC 10 mg oral tablet) [...] soap and warm water or in the lead business analyst, if the parts are lead business analyst safe. You do not need to clean [...] can. ??? Your health care provider or oracle fusion consultant can help you decide which breast [...] 07/24/2010 Document Revised: 03/10/2017 Document Reviewed: 03/10/2017 Loudie Interactive Patient Education ?? 2019 Loudie Inc. Delivery, Care After Refer to this [...] and water are not available, use hand ordnance keeper. ? If you have a dressing, change [...] until your incision heals. Medicines ??? Take sjvk-jdu-heegaxw and prescription medicines only as told by [...] 10/26/2002 Document Revised: 03/08/2017 Document Reviewed: 01/08/2016 Loudie Interactive Patient Education ?? 2018 JellyCloud. ibuprofen (EYE bue PROE fen) Advil, Genpril, IBU, Midol IB, Motrin IB, Proprinal, Smart Sense Children's Ibuprofen What is the most important information I should know about ibuprofen? Ibuprofen can increase your risk of fatal heart attack or stroke, especially if you use it longterm or take high doses, or if you [...] or stroke, especially if you use it tobacco stemmer machine or take high doses, or if you [...] may report side effects to FDA at 1-466-LQY-5341. What other drugs will affect ibuprofen? Ask [...] may interact with ibuprofen, including prescription and gqcm-xxf-nhouzwx medicines, vitamins, and herbal products. Not all [...] to ensure that the information provided by [employer]. ('Multum') is accurate, up-to-date, and complete, but no guarantee is made to that effect. Drug information contained herein may be time sensitive. tok tok tok information has been compiled for use by healthcare practitioners and consumers in the [place] and therefore tok tok tok does not warrant that uses outside of the [place] are appropriate, unless specifically indicated otherwise. tok tok tok's drug information does not endorse drugs, diagnose patients or recommend therapy. [employer] drug information is an informational resource designed [...] effective or appropriate for any given patient. tok tok tok does not assume any responsibility for any aspect of healthcare administered with the aid of information tok tok tok provides. The information contained herein is not intended to cover all possible uses, directions, precautions, warnings, drug interactions, allergic reactions, or adverse effects. If you have questions about the drugs you are taking, check with your doctor, nurse or pharmacist. Copyright 3364-2906 [employer]. Version: 18.01. Revision Date: 05/16/2016.acetaminophen and oxycodone [...] may report side effects to FDA at 0-947-YWJ-3437. What other drugs will affect acetaminophen and [...] affect acetaminophen and oxycodone, including prescription and fxrh-aka-dleygki medicines, vitamins, and herbal products. Not all [...] to ensure that the information provided by [employer]. ('GalaDotum') is accurate, up-to-date, and complete, but no guarantee is made to that effect. Drug information contained herein may be time sensitive. tok tok tok information has been compiled for use by healthcare practitioners and consumers in the [place] and therefore tok tok tok does not warrant that uses outside of the [place] are appropriate, unless specifically indicated otherwise. tok tok tok's drug information does not endorse drugs, diagnose patients or recommend therapy. [employer] drug information is an informational resource designed [...] effective or appropriate for any given patient. [facility] does not assume any responsibility for any aspect of healthcare administered with the aid of information Juaquinwayne provides. The information contained herein is not intended to cover all possible uses, directions, precautions, warnings, drug interactions, allergic reactions, or adverse effects. If you have questions about the drugs you are taking, check with your doctor, nurse or pharmacist. Copyright 0154-[address] [address] [address] [facility] MedicalJibestream. Version: 18.02. Revision Date: 01/14/2018. Emergency Awareness [...] Assistance with quitting is available by contacting 3-280-PLKP-NOW. This is a free resource providing counseling, [...] range between ( 1.0 and 7.0 ) Gilchrist #: 0.99 K/uL -- Normal range between ( 0.24 and 0.82 ) Eos #: 0.07 K/uL -- Normal range between ( 0.04 and 0.54 ) Gilchrist %: 9.3 % -- Normal range between [...] was given the opportunity to ask questions. Patient/Sr. Vendor Management Associate Name: Patient/Sr. Vendor Management Associate Signature: Relationship to Patient: Clinician/Hospital Sr. Vendor Management Associate Signature: Date: documented in this encounter Plan of Treatment Not on file documented as of this encounter Visit Diagnoses Not on filedocumented in this encounter
--- OUTSIDE RECORDS SUMMARY | 2024-12-20 11:10 | XMS_ITS | Encounter Summary ---
Author Organization [employer] ([place], [place], [place], [place], [place]) Address [address] [place] [address] Care Team Providers Care Contact Agent Name Role Phone Unavailable Primary Care Provider Unavailabl e Encounter Details Date Type Department Care Team (Late st Contact Info) Description 09/11/2018 Transcribed Document [facility] [place] Medicine [address] [place] [address] ProviderHanna MD [facility] [place], [place] [address] Social History Tobacco Use Types Packs/Day Years Used Date Smoking Tobacco: Never Assessed Comments Unknown Sex and Gender Information Value Date Recorded Sex Assigned at Not on file Legal Sex Female 6:37 PM CDT Gender Identity Not on file Sexual Orientation Not on file documented as of this encounter Miscellaneous Notes * Cerner Conversion Note - Hanna ProviderMD - 09/11/2018 10:54 AM CDT Admission [...]
--- OUTSIDE RECORDS SUMMARY | 2024-12-20 11:10 | XMS_ITS | Encounter Summary ---
Author Organization [employer] ([place], [place], [place], [place], [place]) Address [address] [place] [address] Care Team Providers Care Scroll Saw Operator Name Role Phone Unavailable Primary Care Provider Unavailabl e Encounter Details Date Type Department Care Team (Late st Contact Info) Description 09/13/2018 Transcribed Document [facility] WAREHOUSE STOCKER - [employer] [address] [employer] [facility] [address] [place] [address] Vidhya Dasilva MD [address] [facility], [address] [place] [address] Social History Tobacco Use Types Packs/Day Years [...] OGTT scheduled for 6 week visit: Yes(_)/No(_) Infant Data (_) NICU (_) Medications Inpatient acetaminophen-oxyCODONE [...]
--- OUTSIDE RECORDS SUMMARY | 2024-12-20 11:10 | XMS_ITS | Encounter Summary ---
Author Organization [employer] ([place], [place], [place], [place], [place]) Address [address] [place] [address] Care Team Providers Care Executive Assistant To President Name Role Phone Unavailable Primary Care Provider Unavailabl e Encounter Details Date Type Department Care Team (Late st Contact Info) Description 09/11/2018 Transcribed Document [facility] [place] Family Medicine [address] [place] [address] ProviderHanna MD [address] [place] [address] [phone] Social History Tobacco Use Types Packs/Day Years Used Date Smoking Tobacco: Never Assessed Comments Unknown Sex and Gender Information Value Date Recorded Sex Assigned at Not on file Legal Sex Female 6:37 PM CDT Gender Identity Not on file Sexual Orientation Not on file documented as of this encounter Miscellaneous Notes * Cerner Conversion Note - Hanna ProviderMD - 09/11/2018 5:25 AM CDT Admission Data, OB Entered On: 09/11/2018 5:26 EDT Performed On: 09/11/2018 5:25 EDT by PARMINDER LANDA RN Advance Directive Patient has Advance Directive *Q : No, patient refuses Advance Directive information PARMINDER LANDA RN - 09/11/2018 5:25 EDT Height and Weight Height Source : Measured Height Entry Format : [place] Height, Feet : 5 ft(Converted to: 152 cm, 60 Inch) Clinical Height : 172.72 cm Height, Inches : 8 Inch(Converted to: 0 ft 8 Inch, 20.32 cm) Weight Source : Standing scale Weight Entry Format : [place] Weight, Pounds : 317 lb Clinical Dosing Weight : 144.09 kg Body Surface Area (BSA) : 2.49 m2 Body Mass Index : 48.3 kg/m2 (>HHI) [place] Body Weight (IBW) : 63.45 kg PARMINDER [...] Days : No Contact With Traveler to [facility] Region : No Tuberculosis Symptoms : None PARMINDER LANDA RN - 09/11/2018 5:25 EDT documented in this encounter Plan of Treatment Not on file documented as of this encounter Visit Diagnoses Not on filedocumented in this encounter
== END 2024-12-20 23:59 | disposition home or self-care (01) ==
LOC: RT 11:06
PROVIDERS: PCP Internal Medicine Adolescent Medicine; Visit Provider Nurse Practitioner Family
DX: I45.10 Unspecified right bundle-branch block (principal); R94.31 Abnormal electrocardiogram [ECG] [EKG]; R42 Dizziness and giddiness
CPT/HCPCS: 93225; 93226

== ENCOUNTER 2024-12-23 07:45 | Outpatient (CLI) | payer BC, SELFPAY ==
--- OUTSIDE RECORDS SUMMARY | 2024-12-23 07:48 | XMS_ITS | Encounter Summary ---
Author Organization [employer] ([place], [place], [place], [place], [place]) Address [address] [place] [address] Care Team Providers Care Manager Electronic Name Role Phone Unavailable Primary Care Provider Unavailabl e Encounter Details Date Type Department Care Team (Late st Contact Info) Description 09/14/2018 Transcribed Document [facility] [place] [facility] [address] ProviderHanna MD [address] [place] [address] [phone] Social History Tobacco Use Types Packs/Day Years [...] soap and warm water or in the opticianry teacher, if the parts are opticianry teacher safe. You do not need to clean [...] can. ??? Your health care provider or digital media sales consultant can help you decide which [...] 07/24/2010 Document Revised: 03/10/2017 Document Reviewed: 03/10/2017 tic Interactive Patient Education ? 2019 tic Inc. Delivery, Care After Refer to this [...] and water are not available, use hand telegraphic typewriter operator. ? If you have a dressing, [...] until your incision heals. Medicines ??? Take icaf-bbg-vqepqhf and prescription medicines only as told by [...] 10/26/2002 Document Revised: 03/08/2017 Document Reviewed: 01/08/2016 [facility] Interactive Patient Education ? 2018 tic Inc. documented in this encounter Plan of Treatment Not on file documented as of this encounter Visit Diagnoses Not on filedocumented in this encounter
--- OUTSIDE RECORDS SUMMARY | 2024-12-23 07:48 | XMS_ITS | Encounter Summary ---
Author Organization [employer] ([place], [place], [place], [place], [place]) Address [address] [place] [address] Care Team Providers Care Police Liaison Officer Name Role Phone Unavailable Primary Care Provider Unavailabl e Encounter Details Date Type Department Care Team (Late st Contact Info) Description 09/17/2018 Transcribed Document [facility] [place] Family Medicine [facility] [place] [address] ProviderHanna MD [facility] [place] [address] Social History Tobacco Use Types [...]
--- OUTSIDE RECORDS SUMMARY | 2024-12-23 07:48 | XMS_ITS | Referral Summary ---
Author Organization [employer] ([place], [place], [place], [place], [place]) Address [address] [place] [address] Care Team Providers Care Specialist Wound Care Name Role Phone Unavailable Primary Care Provider [...]
--- OUTSIDE RECORDS SUMMARY | 2024-12-23 07:48 | XMS_ITS | Encounter Summary ---
Author Organization [employer] ([place], [place], [place], [place], [place]) Address [address] [place] [address] Care Team Providers Care Marine Services Technician Name Role Phone Unavailable Primary Care Provider Unavailabl e Encounter Details Date Type Department Care Team (Late st Contact Info) Description 09/12/2018 Transcribed Document [facility] [place] [address] [place] [address] ProviderHanna MD [address] [place], [place] [address] Social History Tobacco Use Types Packs/Day Years [...]
--- OUTSIDE RECORDS SUMMARY | 2024-12-23 07:48 | XMS_ITS | Encounter Summary ---
Author Organization [employer] ([place], [place], [place], [place], [place]) Address [address] [place] [address] Care Team Providers Care Equipment Technician Name Role Phone Unavailable Primary Care Provider Unavailabl e Encounter Details Date Type Department Care Team (Late st Contact Info) Description 09/11/2018 Transcribed Document [facility] [place] [address] [place] [address] ProviderHanna MD [address] [place], [place] [address] Social History Tobacco Use Types Packs/Day Years [...]
--- OUTSIDE RECORDS SUMMARY | 2024-12-23 07:48 | XMS_ITS | Encounter Summary ---
Author Organization [employer] ([place], [place], [place], [place], [place]) Address [address] [place] [address] Care Team Providers Care Photography Colorist Name Role Phone Unavailable Primary Care Provider Unavailabl e Encounter Details Date Type Department Care Team (Late st Contact Info) Description 09/13/2018 Transcribed Document [facility] GERMAN PROFESSOR - [employer] [address] [employer] [facility] [address] [place] [address] Vidhya Dasilva MD [address] [facility], [address] [place] [address] Social History Tobacco Use Types Packs/Day Years [...]
--- OUTSIDE RECORDS SUMMARY | 2024-12-23 07:48 | XMS_ITS | Encounter Summary ---
Author Organization [email or web address] ([place], [place], [place], [place], [place]) Address [address] [place] [address] Care Team Providers Care Sealing And Canceling Machine Operator Name Role Phone Unavailable Primary Care Provider Unavailabl e Encounter Details Date Type Department Care Team (Late st Contact Info) Description 09/14/2018 Transcribed Document [facility] [place] [address] [place] [address] ProviderHanna MD [address] [place] [address] [phone] Social History Tobacco Use Types Packs/Day Years Used Date Smoking Tobacco: Never Assessed Comments Unknown Sex and Gender Information Value Date Recorded Sex Assigned at Not on file Legal Sex Female 6:37 PM CDT Gender Identity Not on file Sexual Orientation Not on file documented as of this encounter Miscellaneous Notes * Cerner Conversion Note - Hanna ProviderMD - 09/14/2018 12:30 [place] [address] FLORESITA LEONARDO :1980 Visit Time:09/11/2018 Your Visit [...] When 09/24/2018 11:00 AM EDT Where: [address] [facility] [employer] [address] [place] [phone]- Business (1) Medications What How Much When [...] soap and warm water or in the carpenter helper, if the parts are carpenter helper safe. You do not need to clean [...] can. ??? Your health care provider or quality assurance consultant can help you decide which breast [...] 07/24/2010 Document Revised: 03/10/2017 Document Reviewed: 03/10/2017 [employer] Interactive Patient Education ?? 2019 [employer] 1 [employer] Inc. Delivery, Care After Refer to this [...] and water are not available, use hand supervisor cemetery workers. ? If you have a dressing, change [...] until your incision heals. Medicines ??? Take tewg-ipk-bufzxlk and prescription medicines only as told by [...] 10/26/2002 Document Revised: 03/08/2017 Document Reviewed: 01/08/2016 [employer] 1 [employer] Interactive Patient Education ?? 2018 KIYATEC. ibuprofen (EYE bue PROE fen) Advil, Genpril, IBU, Midol IB, Motrin IB, Proprinal, Smart Sense Children's Ibuprofen What is the most important information I should know about ibuprofen? Ibuprofen can increase your risk of fatal heart attack or stroke, especially if you use it chcf or take high doses, or if you [...] or stroke, especially if you use it lobsterman or take high doses, or if you [...] may report side effects to FDA at 8-763-SFK-2864. What other drugs will affect ibuprofen? Ask [...] may interact with ibuprofen, including prescription and twdl-dna-pgcngsb medicines, vitamins, and herbal products. Not all [...] to ensure that the information provided by [employer]. ('Multum') is accurate, up-to-date, and complete, but no guarantee is made to that effect. Drug information contained herein may be time sensitive. [employer] information has been compiled for use by healthcare practitioners and consumers in the [place] and therefore [employer] does not warrant that uses outside of the [place] are appropriate, unless specifically indicated otherwise. [employer]'s drug information does not endorse drugs, diagnose patients or recommend therapy. Ticiess drug information is an informational resource designed [...] effective or appropriate for any given patient. [employer] does not assume any responsibility for any aspect of healthcare administered with the aid of information [employer] provides. The information contained herein is not intended to cover all possible uses, directions, precautions, warnings, drug interactions, allergic reactions, or adverse effects. If you have questions about the drugs you are taking, check with your doctor, nurse or pharmacist. Copyright 0286-4449 [employer]. Version: 18.01. Revision Date: 05/16/2016.acetaminophen and oxycodone [...] may report side effects to FDA at 4-348-ITN-5808. What other drugs will affect acetaminophen and [...] affect acetaminophen and oxycodone, including prescription and hdmz-bob-foabslc medicines, vitamins, and herbal products. Not all [...] to ensure that the information provided by [employer]. ('Blink Bookingtum') is accurate, up-to-date, and complete, but no guarantee is made to that effect. Drug information contained herein may be time sensitive. [employer] information has been compiled for use by healthcare practitioners and consumers in the [place] and therefore [employer] does not warrant that uses outside of the [place] are appropriate, unless specifically indicated otherwise. [employer]'s drug information does not endorse drugs, diagnose patients or recommend therapy. Ticiess drug information is an informational resource designed [...] appropriate for any given patient. [facility] does not assume any responsibility for any aspect of healthcare administered with the aid of information Juaquinwayne provides. The information contained herein is not intended to cover all possible uses, directions, precautions, warnings, drug interactions, allergic reactions, or adverse effects. If you have questions about the drugs you are taking, check with your doctor, nurse or pharmacist. Copyright 2063-5058 [facility]. Version: 18.02. Revision Date: 01/14/2018. Emergency Awareness [...] Assistance with quitting is available by contacting 5-849-JNJT-NOW. This is a free resource providing counseling, [...] range between ( 1.0 and 7.0 ) Weld #: 0.99 K/uL -- Normal range between ( 0.24 and 0.82 ) Eos #: 0.07 K/uL -- Normal range between ( 0.04 and 0.54 ) Weld %: 9.3 % -- Normal range between [...] was given the opportunity to ask questions. Patient/Document Specialist Name: Patient/Document Specialist Signature: Relationship to Patient: Clinician/Hospital Document Specialist Signature: Date: documented in this encounter Plan of Treatment Not on file documented as of this encounter Visit Diagnoses Not on filedocumented in this encounter
--- OUTSIDE RECORDS SUMMARY | 2024-12-23 07:48 | XMS_ITS | Clinical Summary ---
Author Organization [employer] ([place], [place], [place], [place], [place]) Address [address] [place] [address] Care Team Providers Care Cutter Banana Room Name Role Phone Unavailable Primary Care Provider [...]
--- OUTSIDE RECORDS SUMMARY | 2024-12-23 07:48 | XMS_ITS | Encounter Summary ---
Author Organization [employer] ([place], [place], [place], [place], [place]) Address [address] [place] [address] Care Team Providers Care Steel Buffer Name Role Phone Unavailable Primary Care Provider Unavailabl e Encounter Details Date Type Department Care Team (Late st Contact Info) Description 09/11/2018 Transcribed Document [facility] [place] [facility] [address] [place] [address] ProviderHanna MD [address] [place] [address] [id number] Social History Tobacco Use Types Packs/Day Years [...] Source : Measured Height Entry Format : Bates Height, Feet : 5 ft(Converted to: 152 cm, 60 Inch) Clinical Height : 172.72 cm Height, Inches : 8 Inch(Converted to: 0 ft 8 Inch, 20.32 cm) Weight Source : Standing scale Weight Entry Format : Bates Weight, Pounds : 317 lb Clinical Dosing Weight : 144.09 kg Body Surface Area (BSA) : 2.49 m2 Body Mass Index : 48.3 kg/m2 (>HHI) [place] Body Weight (IBW) : 63.45 kg PARMINDER [...] Days : No Contact With Traveler to [facility] Region : No Tuberculosis Symptoms : None PARMINDER LANDA RN - 09/11/2018 5:25 EDT documented in this encounter Plan of Treatment Not on file documented as of this encounter Visit Diagnoses Not on filedocumented in this encounter
--- OUTSIDE RECORDS SUMMARY | 2024-12-23 07:48 | XMS_ITS | Encounter Summary ---
Author Organization [employer] ([place], [place], [place], [place], [place]) Address [address] [place] [address] Care Team Providers Care Sewing Line Baler Name Role Phone Unavailable Primary Care Provider Unavailabl e Encounter Details Date Type Department Care Team (Late st Contact Info) Description 09/11/2018 Transcribed Document [facility] [place] [address] [place] [address] ProviderHanna MD [address] [place], [place] [id number] Social History Tobacco Use Types Packs/Day Years Used Date Smoking Tobacco: Never Assessed Comments Unknown Sex and Gender Information Value Date Recorded Sex Assigned at Not on file Legal Sex Female 6:37 PM CDT Gender Identity Not on file Sexual Orientation Not on file documented as of this encounter Miscellaneous Notes * [employer] Conversion Note - Historical ProviderMD - 09/11/2018 7:35 PM CDT Radio Frequency Technician Details Entered On: 09/11/2018 19:35 EDT Performed [...] 09/11/2018 19:35 EDT Electronically signed by Melany [facility] Conversion Asset Analyst Cerner at 06/04/2022 10:59 AM CDT documented in this encounter Plan of Treatment Not on file documented as of this encounter Visit Diagnoses Not on filedocumented in this encounter
--- OUTSIDE RECORDS SUMMARY | 2024-12-23 07:48 | XMS_ITS | Encounter Summary ---
Author Organization [employer] ([place], [place], [place], [place], [place]) Address [address] [place] [address] Care Team Providers Care Powerhouse Electrician Apprentice Name Role Phone Unavailable Primary Care Provider Unavailabl e Encounter Details Date Type Department Care Team (Late st Contact Info) Description 09/15/2018 Transcribed Document [facility] [place] [facility] [place] [address] ProviderHanna MD [address] [place] [id number] Social History Tobacco Use Types Packs/Day Years [...] section via Pfannenstiel. SURGEON: Breanna Hanna DO AFTERSCHOOL BABYSITTER: Floridalma Castillo PA-C. ANESTHESIA: Spinal. COMPLICATIONS: None [...] Breanna Hanna D.O. Electronically signed by Melany, [facility] Conversion Combatant Diver Officer Cerner at 06/04/2022 10:43 AM CDT documented in this encounter Plan of Treatment Not on file documented as of this encounter Visit Diagnoses Not on filedocumented in this encounter
--- OUTSIDE RECORDS SUMMARY | 2024-12-23 07:48 | XMS_ITS | Encounter Summary ---
Author Organization [employer] ([place], [place], [place], [place], [place]) Address [address] [place] [address] Care Team Providers Care Screen Door Maker Name Role Phone Unavailable Primary Care Provider Unavailabl e Encounter Details Date Type Department Care Team (Late st Contact Info) Description 09/12/2018 Transcribed Document [facility] DESIGN TECHNOLOGY TEACHER - [employer] [address] [facility] [address] [place] [address] Vidhya Dasilva MD [address] [facility], [address] [place] [address] Social History Tobacco Use Types Packs/Day Years [...] scheduled for 6 week visit: Yes(_)/No(_) Data [place] (_) NICU (_) Medications Inpatient acetaminophen-oxyCODONE 325 [...]
--- OUTSIDE RECORDS SUMMARY | 2024-12-23 07:48 | XMS_ITS | Encounter Summary ---
Author Organization [employer] ([place], [place], [place], [place], [place]) Address [address] [place] [address] Care Team Providers Care Warehouse Logistics Manager Name Role Phone Unavailable Primary Care Provider Unavailabl e Encounter Details Date Type Department Care Team (Late st Contact Info) Description 09/11/2018 Transcribed Document [facility] [place] [address] [place] [address] ProviderHanna MD [facility] [place], [place] [address] Social History Tobacco Use Types Packs/Day Years [...]
--- OUTSIDE RECORDS SUMMARY | 2024-12-23 07:48 | XMS_ITS | Encounter Summary ---
Author Organization [employer] ([place], [place], [place], [place], [place]) Address [address] [place] [address] Care Team Providers Care Health Professional Name Role Phone Unavailable Primary Care Provider Unavailabl e Encounter Details Date Type Department Care Team (Late st Contact Info) Description 09/11/2018 Transcribed Document [facility] [place] [address] [place] [address] ProviderHanna MD [address] [place], [place] [id number] Social History Tobacco Use Types Packs/Day Years [...] 1 Health Plan: [employer] Policy Number: [id number] Authorization Number: Insurance 2 Health Plan: [employer] Policy Number: [id number] Authorization Number: Insurance Primary Name : [place] [employer] Authorization Status-Primary : No precert required Authorization Number-Primary : Auto 2/4 Number of Days Authorized-Primary : 4 Authorized Service Begin Date-Primary : 09/11/2018 EDT Authorized Service End Date-Primary : 09/14/2018 EDT Authorization Comments-Primary : Auto 2/4 Historical Authorization Comments-Primary : No Authorization Comments Found AUGUSTO PALMER Rn-Utilization Review - 09/11/2018 13:46 EDT Electronically signed by Dennis Mosley Conversion Pest Control Service Representative Cerner at 06/04/2022 10:49 AM CDT documented in this encounter Plan of Treatment Not on file documented as of this encounter Visit Diagnoses Not on filedocumented in this encounter
--- NOTE | 2024-12-23 07:55 | CA_ITS ---
APPROVED REPORT EXAM: Comprehensive 2D, Doppler, and color-flow Echocardiogram Turret Lathe Tender: Luna Martin RVT Ht: 5 ft 8 in Wt: 311lbs BSA: 2.47 BP: 153/69 mmHg Indications: DIZZINESS,PRE SYNCOPE,HYPERTENSION Echo Enhancing Agent Indication: Rule out Shunt Agent(s) / Amount(s) Used: Agitated Saline 10 cc 2D Dimensions LA Volume 31.10 mL LA Volume Index 12.59 mL/m2 (M/F) 16-34 M-Mode Dimensions RVDd 3.50 cm (0.9-2.6) LA Diam 3.65 cm (1.9-4.0) LVDd 4.34 cm (3.5-5.7) LVDs 2.65 cm (3.5-5.7) IVSd 1.17 cm (0.6-1.1) PWd 0.76 cm (0.6-1.1) EF (Teich) 69.60% FS 38.90% EDV (Teich) 84.90 mL TAPSE 2.00 (<1.7) ESV (Teich) 25.80 mL LV Diastology E Decel Time 213 (160-240 msec) E/A Ratio 0.7 Aortic Valve NOA Index 1.15 cm2/m2 AoV Peak Guido. 128.0 (50-130 cm/s) AO Peak GR. 6.50 mmHg AO Mean GR. 3.70 (<5 mmHg) AO VTI 26.0 (18-25 cm) NOA (VTI) 2.91 (2.5-4.5 cm2) Mitral Valve MV E Max Guido. 62.0 (40-130 cm/s) MV A Velocity 95.0 (40-130 cm/s) E/A Ratio 0.65 MV PHT 62.0 ms Pulmonary Valve PV Peak Velocity 93.0 (50-150 cm/s) Left Ventricle The left ventricle is normal size. Left ventricular systolic function is normal. The left ventricular ejection fraction is within the normal range. There is increased left ventricular wall thickness. There is normal LV segmental wall motion. The left ventricular diastolic function is normal. LVEF is 55% Right Ventricle The right ventricle is normal size. The right ventricular systolic function is normal. Atria The left atrium size is normal. The right atrium size is normal. There is no color Doppler evidence of interatrial shunt. Agitated saline administration demonstrates no evidence of interatrial shunt. Aortic Valve The aortic valve opens well. There is no hemodynamically significant aortic valvular stenosis. No aortic regurgitation is present. Mitral Valve The mitral valve is normal in structure. No evidence of mitral valve stenosis. Mild mitral regurgitation is present. Tricuspid Valve The tricuspid valve leaflets are thin and pliable. Trace tricuspid regurgitation. There is insufficient TR jet to estimate RVSP. Pulmonic Valve The pulmonary valve is grossly normal in structure. Trace pulmonic valve regurgitation is present. Great Vessels The aortic root is normal in size. IVC is normal in size and collapses >50% with inspiration. Pericardium There is no pericardial effusion. Other Information Study Quality: Fair Conclusion Normal biventricular systolic function. Mild MR. Agitated saline administration demonstrates no evidence of interatrial shunt. Electronically signed by : Shima Briceno MD 01/01/2025 01:30:14
[2024-12-23 09:26] LABS: Hematocrit 43.6 % (37.0-47.0); Hemoglobin 14.0 g/dL (12.2-16.2); Immature Granulocytes % 0.3 %; Mean Corpuscular HGB Conc 32.1 g/dL (31.8-35.4); Mean Corpuscular Hemoglobin 29.1 pg (27.0-31.2); Mean Corpuscular Volume 90.6 fl (81-99); Nucleated Red Blood Cells % 0 %; Platelet Count 349 K/mm3 (142-424); Red Blood Count 4.81 M/mm3 (4.20-5.40); Red Cell Distribution Width-SD 42.5 fL; White Blood Count 9.3 K/mm3 (4.8-10.8)
[2024-12-23 09:48] LABS: Albumin Level 4.9 g/dl (3.5-5.0); Chloride 101 mmol/L (98-107); Potassium 4.7 mmoL/L (3.5-5.1); Sodium 138 mmol/L (136-145)
[2024-12-23 09:50] LABS: Blood Urea Nitrogen 11 mg/dl (7-17); Creatinine,Serum 0.70 mg/dl (0.52-1.04); Estimated Glomerular Filt Rate 90 ml/min (>60); GFR (African American) 109 ML/MIN (>60)
[2024-12-23 09:51] LABS: Alanine Aminotransferase 19 U/L (12-78); Albumin/Globulin Ratio 2.2 (1.1-1.8); Alkaline Phosphatase 67 U/L (38-126); Anion Gap 12.7 mEq/L (5-15); Aspartate Amino Transferase 23 U/L (14-36); Bilirubin,Total 0.7 mg/dl (0.2-1.3); Calcium 9.0 mg/dl (8.4-10.2); Carbon Dioxide 29 mmol/L (22.0-30.0); Cholesterol 140 mg/dl (140-200); Globulin 2.2 g/dL (1.3-3.2); Glucose 95 mg/dl (74-100); HDL Cholesterol 43 mg/dl (40-60); Total Protein,Serum 7.1 g/dl (6.3-8.2); Triglycerides 68 mg/dl (30-150)
[2024-12-23 10:01] LABS: Hemoglobin A1C 5.6 % (4.0-6.0)
[2024-12-23 10:23] LABS: Thyroid Stimulating Hormone 1.49 uIU/mL (0.465-4.68)
== END 2024-12-23 23:59 | disposition home or self-care (01) ==
PROVIDERS: PCP Internal Medicine Adolescent Medicine; Visit Provider Nurse Practitioner Family
DX: Z00.00 Encounter for general adult medical examination without abnormal findings (principal); I34.0 Nonrheumatic mitral (valve) insufficiency; R42 Dizziness and giddiness; I10 Essential (primary) hypertension; E66.01 Morbid (severe) obesity due to excess calories; R55 Syncope and collapse
CPT/HCPCS: 36415; 80053; 80061; 83036; 84443; 85025; 93306